=== PATIENT | male | born 1950 | race Caucasian/White ===

== ENCOUNTER → 2016-05-09 | Outpatient (CLI) | payer MEDICARE ==
[2016-05-09 18:18] LABS: CH 33.5; CHCM 35.2; HCT 49.1 % (39.0-53.0); HDW 2.55; HGB 16.5 gm/dL (13.0-17.5); MCHC 33.5 g/dL (31.0-37.0); MCV 95.7 fL (80.0-100.0); Mean Platelet Volume 6.9; RBC 5.13 m/uL (4.30-5.90); RDW 12.2 % (11.5-15.5); WBC 6.9 k/uL (3.8-10.6)
[2016-05-09 18:31] LABS: ALT 48 U/L (21-72); AST 28 U/L (17-59); Alkaline Phosphatase 98 U/L (38-126); Anion Gap 10 mmol/L; Blood Urea Nitrogen 25 mg/dL (9-20); Calcium 10.1 mg/dL (8.4-10.2); Carbon Dioxide 31 mmol/L (22-30); Chloride 102 mmol/L (98-107); Glucose 109 mg/dL (74-99); Non-African American GFR(MDRD) >60 (>60 ml/min/1.73 sqM); Potassium 4.3 mmol/L (3.5-5.1); Sodium 143 mmol/L (137-145); Total Bilirubin 0.8 mg/dL (0.2-1.3); Total Protein 6.8 g/dL (6.3-8.2)
== END | disposition home or self-care (01) ==
LOC: RADXRMAIN 17:56
PROVIDERS: ATTEND Psychiatry & Neurology Neurology
DX: T42.1X Poisoning by, adverse effect of and underdosing of iminostilbenes (principal)
CPT/HCPCS: 80053; 80175; 84439; 84443; 85027

== ENCOUNTER 2016-11-29 16:54 | Inpatient (IN) | payer MEDICARE ==
[2016-11-29] MEDS ORDERED: SODIUM CHLORIDE 0.9% 500 ML IV ONE (17:24)
[2016-11-29] MEDS ORDERED: SODIUM CHLORIDE 0.9% 1,000 ML IV ONE (17:24)
[2016-11-29 17:42] LABS: Appearance,Urine Clear (Clear); Bilirubin,Urine Negative (Negative); Glucose,Urine (UA) Negative (Negative); Ketones,Urine Negative (Negative); Leukocyte Esterase,Urine Negative (Negative); Nitrite,Urine Negative (Negative); PH, Urine 7.5 (5.0-8.0); Protein,Urine Negative (Negative); Specific Gravity,Urine 1.017 (1.001-1.035); UA Billing (MACRO vs. MICRO) CHEM; Urobilinogen,Urine <2.0 mg/dL (<2.0)
[2016-11-29 17:47] LABS: Basophils % (A) 1 %; CH 33.4; CHCM 35.9; Eosinophils # (A) 0.1 k/uL (0-0.7); Eosinophils % (A) 1 %; HCT 43.7 % (39.0-53.0); HDW 2.53; HGB 16.1 gm/dL (13.0-17.5); Luc % (Auto) 2; Lymphocytes # (A) 0.8 k/uL (1.0-4.8); Lymphocytes % (A) 13 %; MCH 34.4 pg (25.0-35.0); MCHC 36.8 g/dL (31.0-37.0); MCV 93.3 fL (80.0-100.0); Mean Platelet Volume 6.2; Monocytes # (A) 0.3 k/uL (0-1.0); Monocytes % (A) 5 %; Neutrophils # (A) 4.7 k/uL (1.3-7.7); Neutrophils % (A) 78 %; RBC 4.68 m/uL (4.30-5.90); RDW 11.9 % (11.5-15.5); WBC (Perox) 6.11
[2016-11-29 17:49] LABS: INR 1.1 (<1.2); Partial Thromboplastin Time 23.3 sec (22.0-30.0); Prothrombin Time 11.5 sec (9.0-12.0)
[2016-11-29 17:52] LABS: ALT 47 U/L (21-72); AST 26 U/L (17-59); Alkaline Phosphatase 100 U/L (38-126); Anion Gap 9 mmol/L; Blood Urea Nitrogen 21 mg/dL (9-20); Calcium 9.4 mg/dL (8.4-10.2); Carbon Dioxide 27 mmol/L (22-30); Chloride 105 mmol/L (98-107); Glucose 100 mg/dL (74-99); Magnesium 2.1 mg/dL (1.6-2.3); Non-African American GFR(MDRD) >60 (>60 ml/min/1.73 sqM); Phosphorous 2.9 mg/dL (2.5-4.5); Sodium 141 mmol/L (137-145); Total Bilirubin 0.5 mg/dL (0.2-1.3); Total Protein 6.1 g/dL (6.3-8.2)
[2016-11-29 18:00] LABS: Creatine Kinase 68 U/L (55-170)
--- NOTE | 2016-11-29 18:05 | CT ---
EXAMINATION TYPE: CT brain wo con DATE OF EXAM: 11/29/2016 COMPARISON: None HISTORY: Altered mental status. CT DLP: 1103.3 mGycm Automated exposure control for dose reduction was used. FINDINGS: Ventricles of normal size. There is no mass effect nor midline shift. There is no sign of intracrania l hemorrhage. The calvarium is intact. There is a mucous small retention cyst in the left maxillary s inus. IMPRESSION: NEGATIVE CT SCAN OF THE BRAIN. NO ADVERSE CHANGE COMPARED TO MR SCAN ON 11/15/2010.
[2016-11-29 18:13] LABS: Creatine Kinase MB 0.7 ng/mL (0.0-2.4); Troponin I <0.012 ng/mL (0.000-0.034)
--- NOTE | 2016-11-29 18:13 | ED ---
General Adult HPI - General Chief complaint: Altered Mental Status Stated complaint: [facility] Mental State Time Seen by Provider: 11/29/16 17:16 Source: patient, family, EMS, RN notes reviewed, old records reviewed Mode of arrival: EMS Limitations: no limitations - History of Present Illness Initial comments: This is a 65-year-old male ER for evaluation. Patient brought in by friend for evaluation of altered mental status. Patient is admitted to occasional call use. But denies significant intoxication. Patient states his mild headache but nothing severe. No chest pain shows of breath or abdominal pain. No nausea vomiting or diarrhea. No change in medications denies any other drugs. He states he's never had a prior history of similar symptoms - Related Data Home Medications Medication Instructions Recorded Confirmed Aspirin 325 mg PO DAILY 11/29/16 11/29/16 Atorvastatin [Lipitor] 80 mg PO DAILY 11/29/16 11/29/16 FLUoxetine HCL [PROzac] 40 mg PO BID 11/29/16 11/29/16 Lysine [l-Lysine] 500 mg PO DAILY 11/29/16 11/29/16 Multivitamins, Thera [Multivitamin 1 tab PO DAILY 11/29/16 11/29/16 (formulary)] lamoTRIgine 200 mg PO BID 11/29/16 11/29/16 Allergies Allergy/AdvReac Type Severity Reaction Status Date / Time No Known Allergies Allergy Verified 11/29/16 18:59 Review of Systems ROS Statement: Those systems with pertinent positive or pertinent negative responses have been documented in the HPI. ROS Other: All systems not noted in ROS Statement are negative. Past Medical History Past Medical History: Hyperlipidemia, Hypertension History of Any Multi-Drug Resistant Organisms: None Reported Past Surgical History: Hernia Repair Past Psychological History: Depression Smoking Status: Never smoker Past Alcohol Use History: Occasional Past Drug Use History: None Reported General Exam Limitations: no limitations General appearance: alert, in no apparent distress Head exam: Present: atraumatic, normocephalic, normal inspection Eye exam: Present: normal appearance, PERRL, EOMI. Absent: scleral icterus, conjunctival injection, periorbital swelling ENT exam: Present: normal exam, mucous membranes moist Neck exam: Present: normal inspection. Absent: tenderness, meningismus, lymphadenopathy Respiratory exam: Present: normal lung sounds bilaterally. Absent: respiratory distress, wheezes, rales, rhonchi, stridor Cardiovascular Exam: Present: regular rate, normal rhythm, normal heart sounds. Absent: systolic murmur, diastolic murmur, rubs, gallop, clicks GI/Abdominal exam: Present: soft, normal bowel sounds. Absent: distended, tenderness, guarding, rebound, rigid Extremities exam: Present: normal inspection, full ROM, normal capillary refill. Absent: tenderness, pedal edema, joint swelling, calf tenderness Back exam: Present: normal inspection Neurological exam: Present: alert, oriented X3, CN II-XII intact Psychiatric exam: Present: normal affect, normal mood Skin exam: Present: warm, dry, intact, normal color. Absent: rash Course Vital Signs 11/29/16 11/29/16 11/29/16 16:59 17:38 18:39 Temperature 99.1 F Pulse Rate 90 68 65 Respiratory 16 20 18 Rate Blood Pressure 151/68 148/67 152/70 O2 Sat by Pulse 96 96 96 Oximetry 11/29/16 11/29/16 19:38 22:00 Temperature 98.8 F Pulse Rate 71 70 Respiratory 18 16 Rate Blood Pressure 141/66 104/55 O2 Sat by Pulse 96 94 L Oximetry - Reevaluation(s) Reevaluation #1: 11/29/16 18:12 Patient remains a poor historian Reevaluation #2: 11/29/16 18:49 Patient is medically clear for psychiatric evaluation, no medical, condition found for mental status EKG Findings - EKG Comments: EKG Findings:: EKG shows normal sinus of 67, WV 146, QRS 100, QTC 464 Medical Decision Making - Medical Decision Making 65 [facility] ER for evaluation, patient's altered mental status will be For psychiatric evaluation and treatment - Lab Data Result diagrams: 12/03/16 20:24 12/03/16 20:24 Lab Results 11/29/16 11/29/16 11/29/16 Range/Units 17:10 17:10 17:10 WBC 6.0 (3.8-10.6) k/uL RBC 4.68 (4.30-5.90) m/uL Hgb 16.1 (13.0-17.5) gm/dL Hct 43.7 (39.0-53.0) % MCV 93.3 (80.0-100.0) fL MCH 34.4 (25.0-35.0) pg MCHC 36.8 (31.0-37.0) g/dL RDW 11.9 (11.5-15.5) % Plt Count 232 (150-450) k/uL Neutrophils % 78 % Lymphocytes % 13 % Monocytes % 5 % Eosinophils % 1 % Basophils % 1 % Neutrophils # 4.7 (1.3-7.7) k/uL Lymphocytes # 0.8 L (1.0-4.8) k/uL Monocytes # 0.3 (0-1.0) k/uL Eosinophils # 0.1 (0-0.7) k/uL Basophils # 0.0 (0-0.2) k/uL PT (9.0-12.0) sec INR (<1.2) APTT (22.0-30.0) sec Sodium (137-145) mmol/L Potassium (3.5-5.1) mmol/L Chloride (98-107) mmol/L Carbon Dioxide (22-30) mmol/L Anion Gap mmol/L BUN (9-20) mg/dL Creatinine (0.66-1.25) mg/dL Est GFR (MDRD) Af Amer (>60 ml/min/1.73 sqM) Est GFR (MDRD) Non-Af (>60 ml/min/1.73 sqM) Glucose (74-99) mg/dL Calcium (8.4-10.2) mg/dL Phosphorus (2.5-4.5) mg/dL Magnesium (1.6-2.3) mg/dL Total Bilirubin (0.2-1.3) mg/dL AST (17-59) U/L ALT (21-72) U/L Alkaline Phosphatase (38-126) U/L Ammonia 19 (<30) umol/L Total Creatine Kinase 68 (55-170) U/L CK-MB (CK-2) 0.7 (0.0-2.4) ng/mL CK-MB (CK-2) Rel Index 1.0 Troponin I <0.012 (0.000-0.034) ng/mL Total Protein (6.3-8.2) g/dL Albumin (3.5-5.0) g/dL TSH (0.465-4.680) mIU/L Urine Color Urine Appearance (Clear) Urine pH (5.0-8.0) Ur Specific [place] (1.001-1.035) Urine Protein (Negative) Urine Glucose (UA) (Negative) Urine Ketones (Negative) Urine Blood (Negative) Urine Nitrite (Negative) Urine Bilirubin (Negative) Urine Urobilinogen (<2.0) mg/dL Ur Leukocyte Esterase (Negative) Urine Opiates Screen (NotDetected) Ur Oxycodone Screen (NotDetected) Urine Methadone Screen (NotDetected) Ur Propoxyphene Screen (NotDetected) Ur Barbiturates Screen (NotDetected) Lamotrigine (2.0-15.0) ug/mL U Tricyclic Antidepress (NotDetected) Ur Phencyclidine Scrn (NotDetected) Ur Amphetamines Screen (NotDetected) U Methamphetamines Scrn (NotDetected) U Benzodiazepines Scrn (NotDetected) Urine Cocaine Screen (NotDetected) U Marijuana (THC) Screen (NotDetected) Serum Alcohol mg/dL 11/29/16 11/29/16 11/29/16 Range/Units 17:10 17:10 17:10 WBC (3.8-10.6) k/uL RBC (4.30-5.90) m/uL Hgb (13.0-17.5) gm/dL Hct (39.0-53.0) % MCV (80.0-100.0) fL MCH (25.0-35.0) pg MCHC (31.0-37.0) g/dL RDW (11.5-15.5) % Plt Count (150-450) k/uL Neutrophils % % Lymphocytes % % Monocytes % % Eosinophils % % Basophils % % Neutrophils # (1.3-7.7) k/uL Lymphocytes # (1.0-4.8) k/uL Monocytes # (0-1.0) k/uL Eosinophils # (0-0.7) k/uL Basophils # (0-0.2) k/uL PT (9.0-12.0) sec INR (<1.2) APTT (22.0-30.0) sec Sodium 141 (137-145) mmol/L Potassium 4.0 (3.5-5.1) mmol/L Chloride 105 (98-107) mmol/L Carbon Dioxide 27 (22-30) mmol/L Anion Gap 9 mmol/L BUN 21 H (9-20) mg/dL Creatinine 0.80 (0.66-1.25) mg/dL Est GFR (MDRD) Af Amer >60 (>60 ml/min/1.73 sqM) Est GFR (MDRD) Non-Af >60 (>60 ml/min/1.73 sqM) Glucose 100 H (74-99) mg/dL Calcium 9.4 (8.4-10.2) mg/dL Phosphorus 2.9 (2.5-4.5) mg/dL Magnesium 2.1 (1.6-2.3) mg/dL Total Bilirubin 0.5 (0.2-1.3) mg/dL AST 26 (17-59) U/L ALT 47 (21-72) U/L Alkaline Phosphatase 100 (38-126) U/L Ammonia (<30) umol/L Total Creatine Kinase (55-170) U/L CK-MB (CK-2) (0.0-2.4) ng/mL CK-MB (CK-2) Rel Index Troponin I (0.000-0.034) ng/mL Total Protein 6.1 L (6.3-8.2) g/dL Albumin 4.1 (3.5-5.0) g/dL TSH (0.465-4.680) mIU/L Urine Color Yellow Urine Appearance Clear (Clear) Urine pH 7.5 (5.0-8.0) Ur Specific [place] 1.017 (1.001-1.035) Urine Protein Negative (Negative) Urine Glucose (UA) Negative (Negative) Urine Ketones Negative (Negative) Urine Blood Negative (Negative) Urine Nitrite Negative (Negative) Urine Bilirubin Negative (Negative) Urine Urobilinogen <2.0 (<2.0) mg/dL Ur Leukocyte Esterase Negative (Negative) Urine Opiates Screen Not Detected (NotDetected) Ur Oxycodone Screen Not Detected (NotDetected) Urine Methadone Screen Not Detected (NotDetected) Ur Propoxyphene Screen Not Detected (NotDetected) Ur Barbiturates Screen Not Detected (NotDetected) Lamotrigine 8.6 (2.0-15.0) ug/mL U Tricyclic Antidepress Not Detected (NotDetected) Ur Phencyclidine Scrn Not Detected (NotDetected) Ur Amphetamines Screen Not Detected (NotDetected) U Methamphetamines Scrn Not Detected (NotDetected) U Benzodiazepines Scrn Not Detected (NotDetected) Urine Cocaine Screen Not Detected (NotDetected) U Marijuana (THC) Screen Not Detected (NotDetected) Serum Alcohol mg/dL 11/29/16 11/29/16 11/29/16 Range/Units 17:10 17:10 17:10 WBC (3.8-10.6) k/uL RBC (4.30-5.90) m/uL Hgb (13.0-17.5) gm/dL Hct (39.0-53.0) % MCV (80.0-100.0) fL MCH (25.0-35.0) pg MCHC (31.0-37.0) g/dL RDW (11.5-15.5) % Plt Count (150-450) k/uL Neutrophils % % Lymphocytes % % Monocytes % % Eosinophils % % Basophils % % Neutrophils # (1.3-7.7) k/uL Lymphocytes # (1.0-4.8) k/uL Monocytes # (0-1.0) k/uL Eosinophils # (0-0.7) k/uL Basophils # (0-0.2) k/uL PT 11.5 (9.0-12.0) sec INR 1.1 (<1.2) APTT 23.3 (22.0-30.0) sec Sodium (137-145) mmol/L Potassium (3.5-5.1) mmol/L Chloride (98-107) mmol/L Carbon Dioxide (22-30) mmol/L Anion Gap mmol/L BUN (9-20) mg/dL Creatinine (0.66-1.25) mg/dL Est GFR (MDRD) Af Amer (>60 ml/min/1.73 sqM) Est GFR (MDRD) Non-Af (>60 ml/min/1.73 sqM) Glucose (74-99) mg/dL Calcium (8.4-10.2) mg/dL Phosphorus (2.5-4.5) mg/dL Magnesium (1.6-2.3) mg/dL Total Bilirubin (0.2-1.3) mg/dL AST (17-59) U/L ALT (21-72) U/L Alkaline Phosphatase (38-126) U/L Ammonia (<30) umol/L Total Creatine Kinase (55-170) U/L CK-MB (CK-2) (0.0-2.4) ng/mL CK-MB (CK-2) Rel Index Troponin I (0.000-0.034) ng/mL Total Protein (6.3-8.2) g/dL Albumin (3.5-5.0) g/dL TSH 1.400 (0.465-4.680) mIU/L Urine Color Urine Appearance (Clear) Urine pH (5.0-8.0) Ur Specific [place] (1.001-1.035) Urine Protein (Negative) Urine Glucose (UA) (Negative) Urine Ketones (Negative) Urine Blood (Negative) Urine Nitrite (Negative) Urine Bilirubin (Negative) Urine Urobilinogen (<2.0) mg/dL Ur Leukocyte Esterase (Negative) Urine Opiates Screen (NotDetected) Ur Oxycodone Screen (NotDetected) Urine Methadone Screen (NotDetected) Ur Propoxyphene Screen (NotDetected) Ur Barbiturates Screen (NotDetected) Lamotrigine (2.0-15.0) ug/mL U Tricyclic Antidepress (NotDetected) Ur Phencyclidine Scrn (NotDetected) Ur Amphetamines Screen (NotDetected) U Methamphetamines Scrn (NotDetected) U Benzodiazepines Scrn (NotDetected) Urine Cocaine Screen (NotDetected) U Marijuana (THC) Screen (NotDetected) Serum Alcohol <10 mg/dL - Radiology Data Radiology results: report reviewed (CT brain negative for acute disease), image reviewed Disposition Clinical Impression: Altered mental state, Rapidly progressive dementia Disposition: TRANSFER TO PSYCH HOSP/UNIT Condition: Fair
--- NOTE | 2016-11-29 18:16 | XR ---
EXAMINATION TYPE: XR chest 2V DATE OF EXAM: 11/29/2016 COMPARISON: NONE HISTORY: Altered mental status. Hypertension. TECHNIQUE: Frontal and lateral views of the chest are obtained. FINDINGS: There is no heart failure nor confluent pneumonic infiltrate. Heart size is normal. There is a calcified granuloma in the left midlung. There are chest leads. There is no pleural effusion. IMPRESSION: No active cardiopulmonary disease. Atheromatous aorta.
[2016-11-29] MEDS ORDERED: ZIPRASIDONE 20 MG CAP PO STA (21:27)
[2016-11-29] MEDS ORDERED: LORazepam 1 MG TAB PO STA (21:28)
[2016-11-29] MEDS ORDERED: LORazepam 2 MG/ML SYRINGE IV STA (21:35)
[2016-11-29] MEDS ORDERED: ZIPRASIDONE 20 MG VIAL IM STA (21:35)
[2016-11-29] MEDS ORDERED: MAG HYDROX/AL HYDROX/SIMETH 30 ML CUP PO PRN (22:43)
[2016-11-29] MEDS ORDERED: MAGNESIUM HYDROXIDE 2,400 MG/10 ML CUP PO PRN (22:43)
[2016-11-30] MEDS: ATORVASTATIN 80 MG TAB PO SCH (09:55)
[2016-11-30] MEDS: FLUoxetine HCL 20 MG CAP PO SCH (09:55)
[2016-11-30] MEDS: ASPIRIN 325 MG TAB PO SCH (09:55)
[2016-11-30] MEDS: NICOTINE 14MG/24HR PATCH TRANSDERM SCH (09:56)
[2016-11-30] MEDS: lamoTRIgine 100 MG TAB PO SCH ×2 (09:56→21:54)
[2016-11-30] MEDS: MULTIVITAMINS, THERA 1 EACH TAB PO SCH (13:15)
[2016-11-30] MEDS: ZIPRASIDONE 20 MG VIAL IM PRN (14:15)
[2016-11-30] MEDS: LORazepam 2 MG/ML SYRINGE IM PRN (14:16)
[2016-11-30] MEDS: risperiDONE ODT 1 MG TAB PO SCH (21:54)
[2016-12-01] MEDS: LORazepam 1 MG TAB PO PRN (06:01)
[2016-12-01 06:15] LABS: Glucose,Whole Blood 89 mg/dL (75-99)
[2016-12-01] MEDS ORDERED: SODIUM CHLORIDE 0.9% 500 ML IV ONE (06:25)
--- NOTE | 2016-12-01 08:48 | P.MDCNMH ---
History of Present Illness H&P Date: 12/01/16 Chief Complaint: Agitation, altered mental status Patient is a 65-year-old male with history of depression and hypercholesterolemia brought in to the emergency room by his family due to altered mental status, patient was found to be severely depressed and agitated so he was admitted to psych unit patient received multiple psychotropic medication including Geodon and Ativan for severe agitation, he subsequently developed low blood pressure and became extremely weak and lethargic with order normal saline bolus and his blood pressure improved after the bolus and it went from 70s-80s systolically mid 120s systolically upon my examination he was arousablehe is in the hospital and that it is 2017 however he states he just wants to go home. Review of Systems un-reliable due to altered mental status ROS unobtainable: due to mental status Past Medical History Past Medical History: Hyperlipidemia, Hypertension History of Any Multi-Drug Resistant Organisms: None Reported Past Surgical History: Hernia Repair Past Psychological History: Depression Smoking Status: Never smoker Past Alcohol Use History: Occasional Past Drug Use History: None Reported Medications and Allergies Home Medications Medication Instructions Recorded Confirmed Type Aspirin 325 mg PO DAILY 11/29/16 11/29/16 History Atorvastatin [Lipitor] 80 mg PO DAILY 11/29/16 11/29/16 History FLUoxetine HCL [PROzac] 40 mg PO BID 11/29/16 11/29/16 History Lysine [l-Lysine] 500 mg PO DAILY 11/29/16 11/29/16 History Multivitamins, Thera [Multivitamin 1 tab PO DAILY 11/29/16 11/29/16 History (formulary)] lamoTRIgine 200 mg PO BID 11/29/16 11/29/16 History Allergies Allergy/AdvReac Type Severity Reaction Status Date / Time No Known Allergies Allergy Verified 11/29/16 18:59 Physical Exam Vitals: Vital Signs Pulse Pulse Pulse Resp BP BP BP 12/01/16 08:18 82 16 102/61 12/01/16 07:12 71 121/64 12/01/16 06:20 68 79/52 11/30/16 09:56 74 16 123/68 Pulse Ox 12/01/16 08:18 12/01/16 07:12 12/01/16 06:20 11/30/16 09:56 95 - Constitutional General appearance: no acute distress - EENT Eyes: PERRLA, normal appearance Ears: bilateral: normal - Neck Neck: no lymphadenopathy, normal ROM, no rigidity, no stridor, no thyromegaly Carotids: bilateral: upstroke normal Thyroid: bilateral: normal size - Respiratory Respiratory: bilateral: CTA, negative: rales, rhonchi, wheezing - Cardiovascular Rhythm: regular Heart sounds: normal: S1, S2 Abnormal Heart Sounds: no systolic murmur, no diastolic murmur, no S3 Gallop, no S4 Gallop Cranial Nerve Examination - Cranial Nerves Cranial Nerve II- Optic: Intact Cranial Nerve III- Oculomotor: Intact Cranial Nerve IV- Trochlear: Intact Cranial Nerve V- Trigeminal: Intact Cranial Nerve - Abducens: Intact Cranial Nerve VII- Facial: Intact Cranial Nerve VIII- Auditory: Intact Cranial Nerve IX- Glossopharyngeal: Intact Cranial Nerve X- Vagus: Intact Cranial Nerve XI- Accessory: Intact Cranial Nerve XII- Hypoglossal: Intact Results Results: EKG reviewed and was was with no acute changes CBC & Chem 7: 11/29/16 17:10 11/29/16 17:10 Assessment and Plan (1) Hypotension due to medication Narrative/Plan: Likely related iatrogenic causes specifically medication induced, after administration of normal bolus his blood pressure improved, we will obtain basic labs including CBC and cardiac markers to rule out any other causes of hypertension such as anemia or coronary artery disease. I Instructed nursing staff to monitor his blood pressure every hourly notify us for any drop in his blood pressure, instituted fall precautions Status: Acute (2) Altered mental state Narrative/Plan: Altered mentation is a combination of initially acute psychosis with subsequent lethargy after multiple psychotropic medication. Status: Acute (3) Depressed Narrative/Plan: Treatment as per psychiatricy Status: Acute (4) Benign essential hypertension Narrative/Plan: No reports of any medication for blood pressure at home upon admission he became hypotensive as mentioned above currently normotensive continue to monitor Status: Acute (5) Hyperlipidemia Narrative/Plan: Continue statins Status: Resolved Time with Patient: Greater than 30
[2016-12-01] MEDS ORDERED: LORazepam 0.5 MG TAB PO STA (08:50)
[2016-12-01] MEDS: FLUoxetine HCL 20 MG CAP PO SCH (08:55)
[2016-12-01] MEDS: risperiDONE ODT 1 MG TAB PO SCH ×2 (08:55→20:48)
[2016-12-01] MEDS: lamoTRIgine 100 MG TAB PO SCH ×2 (08:55→20:48)
[2016-12-01] MEDS: ATORVASTATIN 80 MG TAB PO SCH (08:55)
[2016-12-01] MEDS: NICOTINE 14MG/24HR PATCH TRANSDERM SCH (09:16)
[2016-12-01 09:34] LABS: Basophils % (A) 0 %; CH 33.3; CHCM 34.7; Eosinophils # (A) 0.1 k/uL (0-0.7); Eosinophils % (A) 1 %; HCT 46.3 % (39.0-53.0); HDW 2.53; HGB 16.1 gm/dL (13.0-17.5); Luc # (Auto) 0.08; Luc % (Auto) 1; Lymphocytes # (A) 0.8 k/uL (1.0-4.8); Lymphocytes % (A) 11 %; MCH 33.5 pg (25.0-35.0); MCHC 34.8 g/dL (31.0-37.0); MCV 96.4 fL (80.0-100.0); Mean Platelet Volume 6.3; Monocytes # (A) 0.4 k/uL (0-1.0); Monocytes % (A) 5 %; Neutrophils # (A) 6.2 k/uL (1.3-7.7); Neutrophils % (A) 82 %; WBC 7.5 k/uL (3.8-10.6); WBC (Perox) 7.43
[2016-12-01 09:53] LABS: ALT 48 U/L (21-72); AST 32 U/L (17-59); Alkaline Phosphatase 112 U/L (38-126); Anion Gap 16 mmol/L; Blood Urea Nitrogen 26 mg/dL (9-20); Calcium 9.5 mg/dL (8.4-10.2); Carbon Dioxide 20 mmol/L (22-30); Chloride 105 mmol/L (98-107); Glucose 80 mg/dL (74-99); Non-African American GFR(MDRD) >60 (>60 ml/min/1.73 sqM); Potassium 4.5 mmol/L (3.5-5.1); Sodium 141 mmol/L (137-145); Total Protein 6.5 g/dL (6.3-8.2)
--- NOTE | 2016-12-01 10:09 | HP ---
DATE OF SERVICE: 11/30/2016 IDENTIFYING DATA: This patient is a 65-year-old , male who was admitted to the Mental Health Unit through the emergency room on a petition and clinical certificate. HISTORY OF PRESENT ILLNESS: The patient presents with a petition stating speaking to nonexisting persons, saw a tree moving, becomes combatant. Making no sense. Not eating, drinking, showering, seeing things. Angry then calm. Resisted help from [facility] and EMS. Talking to nonexisting people. Violent actions. The petition was completed by the patients brother, Coy Astorga. The patient was found this morning in the back hallway. He was seated on a bench. Reluctantly he agreed to follow me to the library. I was able to ask approximately 5 or 6 demographic type questions. The patient became agitated. He became very loud and began yelling. Due to his agitation the interview had to be discontinued. This was my second attempt today trying to speak with this patient. The patient has been agitated and confused for the duration of the morning. He has required the use of staff escorting him to his room and providing direction. I was able to reach the petitioner, the patients brother Mr. Coy Astorga. He states that for the last 6 months the patient has been demonstrating more untrusting behavior. He has been getting loud and using profanity. His brother suspects that the patient wants to be a hermit and gets loud in order to push people away. He states that the patient does have history of epilepsy ever since he left college and recently there was a titration of the Lamictal. He is unaware if that could be etiology. He describes the patient as always being untrusting, but seems to be worse lately. I did try speaking with the patients . She was not available. PAST PSYCHIATRIC HISTORY: There is no known history of inpatient psychiatric admissions or suicide attempts. It appears that he is prescribed Prozac 40 mg twice daily, Lamictal 200 mg twice daily for seizures. PAST MEDICAL HISTORY: Hyperlipidemia. He is prescribed Lipitor. Seizure disorder. He is prescribed Lamictal. Lamictal level was ordered. The result is not yet available. ALLERGIES: No known drug allergies. CHEMICAL DEPENDENCY HISTORY: Unknown. FAMILY PSYCHIATRIC HISTORY: Unknown. FAMILY CHEMICAL DEPENDENCY HISTORY: Unknown. SOCIAL HISTORY: The patient is 65-years old. He states that he is since 1974. He reports having two adult children. He reports that he lives with his . 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 He provided no further information. MENTAL STATUS EXAM: The patient is a disheveled appearing male. He has long hair and an overgrown kennedy. He is dressed in hospital attire. He makes no eye contact. As noted, he is easily agitated. He becomes very loud and yells and frequently uses profanity. He indicates that we have stolen his eye glasses and that we are withholding them. He appears to have paranoid and persecutory thoughts. At various times throughout the morning he has demonstrated inability to walk on his own, but other times he indicates that he has difficulty and staff are required to assist him back to his room. No cognitive testing could be performed. Insight and judgment appear to be poor. STRENGTHS: Supportive family. WEAKNESSES: Ongoing symptoms of psychosis impeding psychosocial function. INTELLECT: Presumed to be below average to average. IMPRESSIONS: 1. Psychosis unspecified. 2. Psychosocial function impacted by current symptoms of psychosis. 3. History of seizure disorder and hyperlipidemia. PLAN: The patient has been admitted to the Mental Health Unit involuntarily. I did complete a second clinical certificate. He requires further evaluation and treatment. I will initiate Risperdal M-tab 1 mg twice daily. He has received Geodon IM while on the mental health unit for agitated behavior. Social work will attempt to complete a psychosocial assessment on the patient when appropriate. Internal Medicine will attempt to meet with the patient for routine history and physical exam. Vital signs reviewed. They are within normal limits. Labs reviewed. His urine drug screen was negative. Serum alcohol was negative. We will monitor him for safety. We will continue to try to get further collateral information from family members as allowed. ABDIRAHMAN
[2016-12-01] MEDS: ASPIRIN 325 MG TAB PO SCH (10:13)
--- NOTE | 2016-12-01 12:25 | P.PN ---
Progress Note - Text Interval history: The patient is found in his room. He is lying in bed sleeping. He is verbally arousable but remains quite tired. He continues to receive when necessary medication for agitation. He was evaluated by internal medicine their input is appreciated. Nursing reports that the patient has been compliant with the Risperdal M tab. The patient verbalizes that he wants to go home and continues to lack insight into the reason for this admission. Staff report that the patient will continue to become loud and agitated. We are trying to minimize use of when necessary medication when possible. The patient did require a IV bolus of fluids due to hypotension last evening. Mental status exam: The patient is found sleeping in bed he was verbally arousable but does fall back to sleep. He did provide some brief answers to questions asked and was not agitated during the time I spoke with him because of his sedation. Insight and judgment limited. Presumed symptoms of psychosis continue. He demonstrates no verbal or physical aggressiveness during our brief interaction this morning. Plan: We will continue with the medications as written we will try to minimize the doses to minimize sedation. He has required several when necessary medications due to agitation however in the form of yelling and behavioral issues. Vital signs reviewed. Staff continue to assist him in getting to the dining room for meals.
[2016-12-01] MEDS: MULTIVITAMINS, THERA 1 EACH TAB PO SCH (12:30)
[2016-12-02] MEDS: risperiDONE ODT 1 MG TAB PO SCH (09:31)
[2016-12-02] MEDS: ASPIRIN 325 MG TAB PO SCH (09:31)
[2016-12-02] MEDS: lamoTRIgine 100 MG TAB PO SCH ×2 (09:31→21:51)
[2016-12-02] MEDS: NICOTINE 14MG/24HR PATCH TRANSDERM SCH (09:31)
[2016-12-02] MEDS: FLUoxetine HCL 20 MG CAP PO SCH (09:31)
[2016-12-02] MEDS: ATORVASTATIN 80 MG TAB PO SCH (09:31)
--- NOTE | 2016-12-02 11:54 | P.PN ---
Progress Note - Text Interval History: Patient is a 65-year-old male admitted on an involuntary basis after he was found at home talking to himself, seeing things and becoming agitated. Patient was taking Prozac 40 mg on an outpatient basis, patient is also on Lamictal 200 mg twice a day for seizure disorder etiology unknown. Patient was begun on Risperdal M tabs 1 mg twice a day. Patient was seen in his room where he was sitting at the side of his bed, patient did respond to his name but did not respond to any questions, he was mumbling and stating that he wanted to leave. Patient kept his eyes closed during the whole interaction. When asked if he was eating he stated he was not hungry. Patient did not respond to any further interactions. Mental Status: Appearance/Attitude: Patient is disheveled looking, appropriately dressed and sitting on the edge of his bed with his eyes shut Behavior: Patient has exhibited agitation on the unit and has received medication for such, currently he appears psychomotor retarded. Speech/Language: Patient was not spontaneous, he was mumbling and difficult to understand Thought Process: Patient is not goal-directed, he that he wasn't hungry and he wanted to go home. Patient would not respond to any other questions and did not spontaneously make any other comments. Thought Content: patient did not appear to be responding to internal stimuli and further assessment of his thought content was not available as the patient would not respond to questions. Suicidal/Homicidal Ideation: Unable to assess this patient is not responding to questions. Sensorium/Cognition: Patient was alert when I was speaking with him however he was seen sleeping for most of the time this morning, he was oriented to person but did not respond to any other questions and his attention and concentration are poor. Mood/Affect: patient's mood is irritable and his affect is flat. Insight/Judgement: Patient's insight and judgment are impaired. Assessment: patient required Geodon and Ativan on Friday in the afternoon and required Ativan yesterday in the morning. He has been taking his Risperdal M tab. Patient's computed tomography scan was negative on admission and his Lamictal level was within therapeutic range. 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 Patient's UDS was negative on admission. Patient has a history of a seizure disorder the etiology of which is unknown. Per staff patient was up ambulating this morning and singing, he required IV hydration due to a low blood pressure but his vital signs are currently stable. Patient's laboratory studies do not reveal any clinically significant abnormalities, patient was dehydrated on admission. Plan: I will discontinue the patient's Prozac as it is unclear to me why he was taking the medication and his confused presentation. Patient will continue on the Risperdal M tabs 1 mg twice a day and Lamictal 200 mg twice a day. We'll attempt to obtain further historical information from the patient's with whom he lives. Continue to evaluate the patient and he continues to require hospitalization due to his confused, agitated presentation.
[2016-12-02] MEDS: MULTIVITAMINS, THERA 1 EACH TAB PO SCH (13:34)
[2016-12-02] MEDS: LORazepam 1 MG TAB PO PRN ×2 (13:42→21:52)
[2016-12-02] MEDS ORDERED: THIAMINE 100 MG TAB PO STA (18:47)
[2016-12-03] MEDS: NICOTINE 14MG/24HR PATCH TRANSDERM SCH (08:30)
[2016-12-03] MEDS: ATORVASTATIN 80 MG TAB PO SCH (09:45)
[2016-12-03] MEDS: lamoTRIgine 100 MG TAB PO SCH ×3 (09:46→22:21)
[2016-12-03] MEDS: ASPIRIN 325 MG TAB PO SCH (09:46)
[2016-12-03] MEDS: LORazepam 1 MG TAB PO PRN (09:49)
--- NOTE | 2016-12-03 10:40 | XR ---
Right hip HISTORY: Right hip pain, trauma 2 views of the right hip No comparisons Surgical clips are noted in the right pelvis. Bone mineralization is mildly reduced. Alignment is ada ntained. Some minimal marginal spurring is suspected. Joint space maintained. There is a questionable lucency seen at the level of the medial aspect of the acetabulum as measured on the oblique view. Fr ontal view shows poor definition possibly due to technique or low bone mineral. IMPRESSION: Difficult to exclude fracture as described. No evident dislocation. Consider CT scan or M RI for better evaluation.
[2016-12-03] MEDS: THIAMINE 100 MG TAB PO SCH (13:01)
[2016-12-03] MEDS: MULTIVITAMINS, THERA 1 EACH TAB PO SCH (13:01)
--- NOTE | 2016-12-03 13:15 | P.PN ---
Progress Note - Text Interval History: Patient is a 65-year-old male who was seen again today. Patient was in his room and had just fallen and hip x-ray was ordered which revealed no fractures. Patient again was keeping his eyes shut and could not tell me why. Patient responded to his name and continue to have difficulty responding to questions were providing history. Patient did verbalize when asked if he drank alcohol at home but he was unable to state how much or how frequently. Patient remains confused and needing redirection, he needed assistance in eating last evening. Mental Status: Appearance/Attitude: Patient is in a hospital gown and is disheveled, patient keeps his eyes closed. Behavior: Patient is not demonstrating any psychomotor agitation or retardation. Speech/Language: Patient is not spontaneous, only responding occasionally to questions in brief sentences and at times is not relevant. Thought Process: Patient is unable to respond to most questions Thought Content: Patient does not appear to be responding to internal stimuli, patient is unable to verbalize any complaints. Suicidal/Homicidal Ideation: Unable to assess, patient has made no threatening statements and has exhibited no self harm behavior. Sensorium/Cognition: Patient is more alert today, is oriented to his name and situation he is unable to state the city and thought it was 2011. Mood/Affect: Patient's mood remains flat and his affect is as well. Insight/Judgement: Patient's insight and judgment are impaired Assessment: Patient continues to have symptoms of a delirium although today he is more alert but remains disoriented, confused and has difficulty performing most ADLs. Patient's provided information that he had a seizure disorder after suffering a stroke while he was in the [employer] in 1968. She did not provide any history regarding his use of alcohol/drugs. Patient did verbalize to staff last evening that he wanted wine with his dinner and also verbalized that he did use alcohol at home, today he also stated that he did drink but is unable to tell us how much or how often. Patient felt today while getting back into the wheelchair which was not locked and a hip x-ray was ordered. The x- ray revealed no fracture but the patient does have surgical clips in his pelvis. Per report from social work during the team treatment meeting his was not forthcoming with any further information. Patient has required 2 doses of Ativan as needed and has not been aggressive or assaultive on the unit. Plan: I have discontinued his Risperdal and Prozac and have continued him on Ativan when necessary and Geodon when necessary for severe agitation. Patient remains confused and disoriented, needing assistance with most ADLs. At times he appears clear and has been ambulating without difficulty in the halls and at other times appears unsteady on his feet and has been using a wheelchair. Patient was also started on thiamine yesterday and a B12 and folate level were ordered this morning. Patient's computed tomography scan on admission was negative for any acute injury. Will continue to observe the patient and evaluate the need for further studies as his condition dictates. Patient continues to require hospitalization due to his confusion.
[2016-12-03 13:18] LABS: Vitamin B12 889 pg/mL (239-931)
--- NOTE | 2016-12-03 19:57 | XR ---
EXAMINATION TYPE: XR orbit pre-MRI foreign body DATE OF EXAM: 12/03/2016 COMPARISON: NONE HISTORY: Foreign body TECHNIQUE: 3 views FINDINGS: Orbital margins are intact. There is no sign of radiopaque foreign body. Paranasal sinuses appear normal. IMPRESSION: No evidence of foreign body.
[2016-12-03] MEDS ORDERED: SODIUM CHLORIDE 0.9% 500 ML IV ONE (19:58)
--- NOTE | 2016-12-03 20:28 | CT ---
EXAMINATION TYPE: CT brain wo con DATE OF EXAM: 12/03/2016 COMPARISON: 11/29/2016 HISTORY: Fall. Confusion. CT DLP: 1168 mGycm Automated exposure control for dose reduction was used. FINDINGS: Ventricles and sulci appear normal for age. There is no mass effect nor midline shift. There is no si gn of intracranial hemorrhage. The calvarium appears intact. There is small mucus retention cyst in t he left maxillary sinus. IMPRESSION: NEGATIVE CT SCAN OF THE BRAIN. NO CHANGE.
[2016-12-03 20:35] LABS: CH 34.1; CHCM 35.3; HCT 47.2 % (39.0-53.0); HDW 2.49; MCH 32.8 pg (25.0-35.0); MCHC 33.9 g/dL (31.0-37.0); MCV 96.9 fL (80.0-100.0); RBC 4.87 m/uL (4.30-5.90); RDW 12.6 % (11.5-15.5)
--- NOTE | 2016-12-03 20:48 | P.PN ---
Progress Note - Text 65 years old gentleman with progressing him and she over the last 6 months who has been falling frequently, fell 2 times today, and per patient he had a head trauma and loss of consciousness. However of note he is only oriented 1-2. He denied dysuria, coughing, abdominal pain, nausea or vomiting. I spoke to the psychiatric primary team, who reported that the patient has been having worsening altered mental status over the last 6 months as per the family, and he has been having visual hallucinations issues. They reported that he does have a history of heat stroke and seizure disorder. The patient actually does have visual hallucinations today as well. It was also reported that he is a daily drinker, drinks 2 glasses of wine nightly and the last drink was prior to admission, almost 4 days ago. Patient was recently started on Geodon on Friday and was held yesterday as it was causing the patient significant lethargy, and according to the psychiatrist the patient is more awake today. We, the hospitalist team, were called to reevaluate the patient today after we saw him as a consult upon admission, after he had a fall today that was unwitnessed. Upon my interview with the patient is awake and alert but he is only oriented 1-2 and he does have obvious visual hallucinations. His orthostatics were positive upon check by RN. He was also hypertensive in the 180s that done down to 150s. He is not on any blood pressure medications. He is on full dose aspirin. Physical exam: Vital signs positive orthostasis, systolic blood pressure in the 180s, heart rate in the low 90s, the patient is on room air No apparent distress, alert and oriented 1-2 CT AB with no crackles or wheezing Patient does have positive Romberg sign, no focal motor or sensory deficit Bruising over the right hip Impaired cognition and judgment Regular heart rate with no audible murmurs and no heaves No labs from today Assessment and plan: #Altered mental status and frequent falls, most likely due to his progressing dementia, it was reported that he did have shuffling gait by prior neurology assessment so it can be lowe body dementia, most likely due to sepsis, less likely due to medication changes as none occurred to be of concern, could be a stroke although the patient had a negative CT head on admission, could be related to alcohol withdrawal although this is less likely, or it could be just due to dehydration or orthostasis. -We will give 1 L bolus -We ordered CBC and basic metabolic panel as well as UA -CIWA protocol assessment -We will order stat CT head to evaluate for any intracranial bleeding versus stroke as the patient is on full dose aspirin. We will also order MRI/MRA head and neck to obtain a possible diagnosis for his worsening altered mental status. -Neurology consult -If concerns for multiple trauma, we do recommend consulting trauma surgery for thorough evaluation #Positional Orthostasis with essential hypertension -We will start lisinopril 5 mg -Bolus as above #Imbalance -Related to above -Fall precautions -Physical therapy consult -1:1 monitoring #Right hip pain, h/o hip surgery -Negative R hip xray 12/03 #Poor by mouth intake -1:1 feeding is recommended -Nutritional evaluation is recommended #Goals of care -We'll recommend re-discussion of goals of care with the family as the patient overall prognosis is poor More than 40 minutes was spent on this patient medical assessment.
[2016-12-03 21:00] LABS: Anion Gap 13 mmol/L; Blood Urea Nitrogen 25 mg/dL (9-20); Carbon Dioxide 26 mmol/L (22-30); Chloride 103 mmol/L (98-107); Glucose 109 mg/dL (74-99); Non-African American GFR(MDRD) >60 (>60 ml/min/1.73 sqM); Potassium 4.1 mmol/L (3.5-5.1); Sodium 142 mmol/L (137-145)
[2016-12-03] MEDS: ZIPRASIDONE 20 MG VIAL IM PRN (22:00)
[2016-12-03] MEDS ORDERED: WATER FOR INJECTION, STERILE 10 ML IV ONE (22:08)
[2016-12-03] MEDS: LISINOPRIL 5 MG TAB PO SCH ×2 (22:10→22:20)
[2016-12-04 08:17] LABS: Glucose,Whole Blood 111 mg/dL (75-99)
[2016-12-04] MEDS: ASPIRIN 325 MG TAB PO SCH (09:42)
[2016-12-04] MEDS: LISINOPRIL 5 MG TAB PO SCH (09:44)
[2016-12-04] MEDS: ATORVASTATIN 80 MG TAB PO SCH (09:44)
[2016-12-04] MEDS: LORazepam 1 MG TAB PO PRN (09:46)
[2016-12-04] MEDS: lamoTRIgine 100 MG TAB PO SCH ×2 (09:46→22:43)
[2016-12-04] MEDS: NICOTINE 14MG/24HR PATCH TRANSDERM SCH (10:01)
[2016-12-04 12:29] LABS: Treponemal Ab Non-Reactive (Non-Reactive)
[2016-12-04] MEDS: MULTIVITAMINS, THERA 1 EACH TAB PO SCH ×2 (13:24→13:50)
[2016-12-04] MEDS: THIAMINE 100 MG TAB PO SCH ×2 (13:24→13:51)
--- NOTE | 2016-12-04 14:26 | P.PN ---
Subjective Principal diagnosis: Patient is seen and examined today, in follow up for behavioral changes, memory loss, and recurrent falls. history obtained by reviewing the chart, discussing the case with patient's over the phone, and discussion with Dr. Sarabia. 65 year old male with no significant past medical history except for depressed mood and feeling under pressure. Patient recognizes that her husbands problems possibly started a year ago, when he started to have trouble with walking as he stumbles over things and bumps his toes with furniture. He has never been diagnosed with stroke, and never had any focal neurologic deficits. but patient's does report that the patient is not as strong as he used to be. She reports long history of acting out dreams but no report of falling off the bed, and in part, this could be due to patient;s preference to sleep on the floor due to his chronic back pain. Patient is not aware of a diagnosis of lumbar stenosis which could explain LE weakness and falls. Patient;s did report long history of alcohol on regular basis, but she does not think that her was abusing alcohol up until couple weeks ago when she noticed a significant sudden increase in the amount of alcohol ingestion that lead to multiple family members criticizing the patient's alcohol habits. She adds, that he cut back on alcohol over the few days prior to presentation where he was brought to the hospital due to what appears to the family as a nervous breakdown. She did recognize a recent change in patients hand writing that he himself can not read what he writes any more. patient is not aware of any tremors in patient's hands, but definitely recognizes changes in his personality. She reports that all this has been happening pretty fast with quick deterioration in patients memory and behaviors over the past 1 year. His doctors has started him on prozac for depression during this period. Patient's did also report history of dementia in patient's mother and older brother, without knowing the exact type. Today I saw the patient in his room while he was eating, he was properly groomed and very calm and cooperative, however; he was confabulating and most of the time he did not make any sense when responded to my questions, he was pointing at condiments and thought its "fish" and became tangential in his thoughts and kept talking about ice fishing until he was redirected by me, then he could not name the hard boiled eggs he was eating and thought it was a sugary treat. Then he struggled but eventually recognized the arriaga he was eating, but had no idea what was he eating when i pointed to the bread. He reports that he feels fine and wants to leave, but when was asked to stand up and walk, he refused saying "I dont feel safe standing up as I would fall". Objective - Vital Signs Vital signs: Vital Signs Temp 97.8 F 12/03/16 09:20 Pulse 88 12/04/16 09:40 Resp 18 12/04/16 09:40 BP 111/66 12/04/16 09:40 Pulse Ox 96 12/03/16 18:45 Constitutional: vital signs stable, Not in acute distress, pleasant, conversant, but confabulating and most of the time he was tangential in his thoughts and his responses dont make sense. Eyes: Pupils equal round reactive to light, no evidence of nystagmus, EOMI ENMT: Normocephalic, atraumatic, oropharynx clear, no erythema/exudate Neck: Supple, no carotid bruit Lungs: Clear to auscultation bilaterally, normal respiratory effort no use of accessory muscles Cardiovascular: Regular rate and rhythm, no murmurs, no gallops, no rubs, no peripheral edema Gastrointestinal: Soft, no tenderness to palpation, no palpable hepatosplenomegally, bowel sounds positive Skin: Unremarkable temperature, tone, texture, and turgor, no induration or subcutaneous nodule, no rashes, no lesions, no ulcers Extremities: No digital cyanosis, ischemia, or clubbing, peripheral pulses palpable and equal over bilateral radial arteries and dorsalis pedis arteries, no calf muscle tenderness Psych: Alert, oriented to self only, well groomed, and calm , poor judgment Neuro: Cranial nerves II-XII grossly intact, no focal sensory deficits to touch , strength 4/5 throughout. plantar reflex is equivocal bilaterally , tone is within normal limits (no appreciated led pipe, or cogwheel rigidity) , gait was not tested as patient was afraid to stand up. - Labs CBC & Chem 7: 12/03/16 20:24 12/03/16 20:24 Labs: Abnormal Lab Results - Last 24 Hours (Table) 12/03/16 12/04/16 Range/Units 20:24 08:05 BUN 25 H (9-20) mg/dL Glucose 109 H (74-99) mg/dL POC Glucose (mg/dL) 111 H (75-99) mg/dL Assessment and Plan (1) Rapidly progressive dementia Narrative/Plan: This could be of wide differential diagnosis, including, but not limited to: a - Vascualar (recurrent mini brain ischemia) , CT scan of the head did not show any acute insult at this time b- Alcohol abuse, however, patient's denied any history of alcohol abuse, she reported patient would drink a glass of wine on most of the evenings, however not until couple weeks ago, when he increased his alcohol ingestion remarkably and lead to criticism by his family. and when he started to cut back led to nervous breakdown for which he was brought to the hospital c- Parkinsons dementia, neurologic exam did not suggest findings supportive of parkinson's, however, family did report shuffling gate and overall slowing in the patient along with change in hand writing that became illegible, these symptoms along with behavioral changes could be secondary to this process. d- Alpha synucleinopathy neurodegenrative disease, does progress into parkinson' s, dementia with lewy body disease, and multiple system atrophy (MSA), in almost 80% of the patients within 5 years of onset of symptoms , and patient's did report history of dreams enactments which could be suggestive of REM behaviour disorder, that was very atypical of her patient to act violently as he normally is a very nice person. This was never officially diagnosed before, but was suspected based on the information provided from the patient's . Neurodegenrative disease could be the underlying cause of the patient's orthostatic hypotension (due to impared vasoconstriction), as this could be one of the manifestations of this disorder , and supports this diagnosis. 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 However, this diagnosis is more common in females than in males. but this diagnosis would not explain the sudden rapid change in this patient's behavior. Plan fall precautions Vitamin B12 and Folic acid are unremarkable check EEG check serology for VDRL, check for HIV LP to evaluate for elevated proteins, Protein S100 subtype. Obtain MRI of the brain would help with evaluation of recurrent vascular insults , caudate nucleus changes that could be related to CJD dementia, or potamin nucleaus changes Neurology evaluation is warranted Status: Acute Time with Patient: Greater than 30
[2016-12-04] MEDS: ZIPRASIDONE 20 MG VIAL IM PRN (14:53)
--- NOTE | 2016-12-04 16:33 | MR ---
EXAMINATION TYPE: MR angio head wo con, MR brain wo/w mraneck wo/wcon DATE OF EXAM: 12/04/2016 COMPARISON: CT brain dated 12/03/2016 HISTORY: r/o Creutzfeld Valentín Disease TECHNIQUE: Multiplanar, multisequence images of the brain and brainstem is performed without and with IV contras t, utilizing 20 mL intravenous MultiHance . Time of flight images focusing on the [place] an d neck were performed without contrast. 2-D and 3-D postprocessing imaging is performed. FINDINGS: There is no T2 hyperintensity within the caudate, globus pallidus, or thalami. No restricted diffusio n is seen within the basal ganglia. Diffusion weighted images demonstrate no evidence of a recent infarct or other diffusion abnormality. There is no extra-axial fluid collection. Periventricular T2/FLAIR hyperintensity is appreciated, w hich is nonspecific and most commonly on the basis of microangiopathy.. The ventricular system and c isternal spaces are normal in size and appearance. The brain volume is age appropriate. Midline structures demonstrate normal morphology. The craniocervical junction appears within normal limits. Mucosal retention cyst is seen within the left maxillary sinus. The remaining visualized sin uses are clear and the globes are intact. [place] is intact. No focal stenosis or aneurysmal outpouching of the intracranial arterial vasculature. Flow-voids are seen within the dural venous sinuses. Vertebral arteries are codominant. No evidence of significant stenosis within the carotid systems. No evidence of carotid or vertebral d issection. No evidence of carotid or vertebral aneurysm. No abnormal enhancement is seen on postcontrast images. IMPRESSION: 1. No MRI findings to correspond to the patient's possible diagnosis of Creutzfeldt Valentín disease. 2. Unremarkable MR of the brain with no evidence of acute territorial infarct, mass effect, or abnorm al enhancement. 3. No evidence of focal stenosis, aneurysm, occlusion, or dissection of the carotid system, vertebral system, or intracranial arterial vasculature.
--- NOTE | 2016-12-04 17:39 | P.PN ---
Progress Note - Text Interval History: Patient is a 65-year-old male who became quite agitated last evening requiring Geodon 10 mg IM. This morning when I spoke with him patient was alert and was rambling and not relevant in his responses. He remained disoriented but did have his eyes open. Patient was not able to respond to questions relevantly. Patient later this afternoon again became quite agitated when I was speaking with him and required Geodon again prior to an MRI. Mental Status: Appearance/Attitude: Patient was dressed in a hospital gown, makes intermittent eye contact and at times can become agitated Behavior: Patient does not display any psychomotor retardation but can easily become agitated Speech/Language: Patient is seen talking in his room, was spontaneous with me, spoke in a normal tone and rhythm but was not relevant Thought Process: Patient is not goal-directed, his answers are not relevant at times he is rambling Thought Content: Patient is observed to be talking to himself but is unable to verbalize if he is hearing voices and at times he is having visual hallucinations. Patient can become easily agitated and irritable. Suicidal/Homicidal Ideation: Patient is not making any self-harm gestures but can easily become agitated and aggressive. Sensorium/Cognition: Patient is alert, oriented to person and to situation but not to date or city. Unable to assess his cognitive status further due to his inability to respond relevantly to questions. Patient was able to name object of the posadas, thought a tube of toothpaste was ointment, and thought a toothbrush was a scraper. Mood/Affect: Patient's mood can vary between being cooperative and being agitated and aggressive. Insight/Judgement: Patient's insight and judgment are impaired. Assessment: Patient continues to present with symptoms of confusion, disorientation however patient has shown some improvement in that he is keeping his eyes open and is more alert. However he continues to have periods of time where he becomes agitated and aggressive requiring medication. He has been able to feed himself today. Patient's records from his neurologist were reviewed which revealed that the patient had been reporting memory issues since sometime in 2014 and had also been reporting periods of stuttering, visual disturbances and eye pain. Patient had reported feeling depressed and anxious due to the increased need to assist his who has multiple sclerosis and is a paraplegic per the neurologist record. Patient was placed on Prozac and was last seen by his neurologist in May 2016. His dose of both Prozac and Lamictal were increased after that appointment. Patient's serology for syphilis was negative, HIV serology was negative and patient had an MRI today that revealed no pathology that could explain his current symptoms. Plan: Patient continues to be disoriented, not able to respond to questions relevantly, intermittently becoming agitated and requiring Geodon on an as- needed basis. Patient sleeps after geodon however his orientation and confusion do not improve. At this time his serology tests of all been negative and his MRI has not revealed any possible cause for his cognitive status. We'll discuss the case further with medical language specialist regarding further testing and possible etiology. And await neurology consult.
[2016-12-05] MEDS: LORazepam 1 MG TAB PO PRN (01:15)
[2016-12-05] MEDS: ACETAMINOPHEN TAB 325 MG TAB PO PRN (01:17)
[2016-12-05] MEDS ORDERED: WATER FOR INJECTION, STERILE 10 ML IV ONE ×2 (07:37→07:49)
[2016-12-05] MEDS: ZIPRASIDONE 20 MG VIAL IM PRN (07:40)
[2016-12-05] MEDS: LORazepam 2 MG/ML SYRINGE IM PRN ×2 (07:40→20:51)
[2016-12-05] MEDS ORDERED: ZIPRASIDONE 20 MG VIAL IM ONE (07:49)
[2016-12-05] MEDS ORDERED: ZIPRASIDONE 20 MG VIAL IM STA (07:56)
[2016-12-05] MEDS: LISINOPRIL 5 MG TAB PO SCH (09:25)
[2016-12-05] MEDS: NICOTINE 14MG/24HR PATCH TRANSDERM SCH (09:25)
[2016-12-05] MEDS: ATORVASTATIN 80 MG TAB PO SCH (09:25)
[2016-12-05] MEDS: ASPIRIN 325 MG TAB PO SCH (09:25)
[2016-12-05] MEDS: lamoTRIgine 100 MG TAB PO SCH ×2 (09:25→21:06)
--- NOTE | 2016-12-05 12:12 | P.PN ---
Subjective Principal diagnosis: Altered mentation Patient is a 65-year-old male with a past medical history of seizure disorder, alcohol abuse, and depression who initially presented with behavioral changes. We have been asked to review the case due to rapidly progressive dementia, behavioral disturbances, and recurrent falls. Further detailed review of these please see note I Dr. Johnson on 12/04/2016. We are currently awaiting lumbar puncture, EEG, and neurology evaluation. Patient became increasingly agitated today and was therefore given Geodon. On my exam patient is sedated and unable to adequately follow commands or . Case was discussed with Dr. Sarabia at [facility], outside medical records were reviewed , and past medical information from our hospital is reviewed as well. Unable to obtain a review of systems secondary to patient being unable to verbally communicate at this time. Objective - Vital Signs Vital signs: Vital Signs Temp 98.1 F 12/05/16 06:39 Pulse 83 12/05/16 06:39 Resp 16 12/05/16 06:39 BP 130/60 12/05/16 06:39 Pulse Ox 96 12/03/16 18:45 - Exam General: non toxic, no distress, appears at stated age Derm: no rashes, no lesions Head: atraumatic, normocephalic, symmetric Eyes: EOMI, no lid lag, anicteric sclera ENT: no post nasal drip, no thrush Mouth: no lip lesion, mucous membranes dry Cardiovascular: S1S2 reg, no murmur, positive posterior tibial pulse bilateral, Lungs: CTA bilateral, no rhonchi, no rales , shallow breathing Abdominal: soft, nontender to palpation, no guarding, no appreciable organomegaly Ext: no gross muscle atrophy, no edema, no contractures Neuro: CN II-XI grossly intact, weight touch intact all 4 extremities, no muscle rigidity, no cogwheeling, Babinskis upgoing bilaterally, brisk reflexes on left upper extremity, normal reflexes in right upper extremity, no clonus, no tremors, no nystagmus Psych: Somnolent but arousable, intermittently able to follow commands - Labs CBC & Chem 7: 12/03/16 20:24 12/03/16 20:24 Assessment and Plan (1) Rapidly progressive dementia Narrative/Plan: Differential diagnosis is wide in this case, could consider; - Vascular dementia but this appears unlikely as an MRA of the brain is negative. - NPH could be considered with report of abnormal behaviors and increased falls- lumbar puncture with opening pressure would be beneficial for this diagnosis, however with ventricle size is normal and normal MRI would also doubt diagnoses - Alpha synucleinopathy neurodegenrative disease, does progress into parkinson's, dementia with lewy body disease, and multiple system atrophy (MSA) , agree that neurodegenrative disease could be the underlying cause of the patient's orthostatic hypotension (due to impared vasoconstriction), physical exam did not supprot parkinson's and MRI is normal without atrophy - Weirnicke encephalopathy is a possibility, though it appears that his drinking was not quite this severe, will switch thiamine to IM - Cerberitis/vasculitis- check ESR and CRP - Possible CJD - Await neurology eval, LP, and EEG. - VDRL negative - B 12, TSH, Ammonia, HIV, and UA are within normal - MRI/MRA is normal Status: Acute (2) Seizure disorder Narrative/Plan: Continue lamicatal, neurology recs Status: Acute (3) Alcohol use Narrative/Plan: cessation recommended, will switch Thiamine to IM as patient has not been taking oral Status: Acute (4) Orthostatic hypotension Narrative/Plan: Currently unsafe to rechek orthostatic vitals, once patient is cooperative and able to follow commands then recheck Status: Acute Plan: Discussed with: Psych Anticipated discharge place: halfway care facility A total of 45 minutes was spent on the this complex patient. Time with Patient: Greater than 30
[2016-12-05] MEDS: MULTIVITAMINS, THERA 1 EACH TAB PO SCH (12:39)
[2016-12-05] MEDS: THIAMINE 100 MG/ML 2 ML VIAL IM SCH (13:00)
[2016-12-05] MEDS: THIAMINE 100 MG TAB PO SCH (15:09)
--- NOTE | 2016-12-05 16:02 | P.PN ---
Progress Note - Text Interval History: Patient is a 65-year-old male who became severely agitated this morning, requiring injection of Geodon 10 mg IM 2. Patient now sedated and sleeping. Patient awake and agitated, yelling out that he wants it taken out of him and put into someone else, patient has been in his bed all day and has had some water but has not eaten. Mental Status: Patient is lying in his bed, when i spoke to him he became quite agitated. Patient has been sleeping after the geodon this am, he is at times agitated and yelling out, at times is responding to staff and cooperating. Patient remains confused, oriented only to person and situation. Assessment: Patient has had a workup including an MRI that has revealed no pathology, his serology has been negative and his B12 and folate were also within normal limits. Patient appears to clear somewhat with the IM Geodon as yesterday after receiving 10 mg IM due to agitation later in the early evening the patient was more responsive and cooperative. Plan: I spoke with the neurologist about the workup, patient has had a 2 year reported memory problems, his reports a shuffling gait, inability to solve problems and becoming increasingly irritable, he was using several glasses a wine a day over the last 6 months. he had reported stuttering to his neurologist in May and visual disturbances and pain. His brother reports patient was having visual hallucinations with him, increasing irritation. Patient has no prior history of psychiatric problems, and he was on prozac for depression started by his neurologist. Patient retired in 2002 due to his seizure disorder and his lamictal was recently increased to 400mg/day from 300mg /day. Patient has a guardianship hearing tomorrow and will do lumbar tap after we can get consent from his guardian. I will start patient on zyprexa 2.5mg bid to decrease his agitation and continue prn geodon and ativan as well. He continues to require hospitalization.
[2016-12-05] MEDS: DOCUSATE 100 MG CAP PO SCH ×2 (20:13→22:08)
[2016-12-05] MEDS ORDERED: LORazepam 1 MG TAB PO PRN (20:20)
--- NOTE | 2016-12-05 20:41 | P.CNNES ---
History of Present Illness Consult date: 12/05/16 History of Present Illness: The patient is a 65-year-old man who presented to the emergency room out in by family due to altered mental status. Kimberlyn the patient has been depressed and agitated at home. Was petitioned for admission by his brother. The patient had become very agitated. Kimberlyn for 6 months the patient has been having what his brother terms "" on trusting behavior and been using profanity. Been having some memory issues as well for 2 years and was sitting Dr. Grove for that as well as seizures.'s been on Lamictal for seizure control. was admitted to the psychiatry floor with these symptoms. ALLERGIES requested to see the patient regarding possible dementia. Patient has been having up apparently some shuffling gait and frequent fall. Patient is unable to give a clearcut history. His Speech is clear but disorganized. Her is no obvious a aphasia. The patient denied any headache or back pain. He did point to his right hip which he states he fell on and hurt. The patient has been having hallucinations visual and auditory during his hospital stay and very agitated. There have been fluctuations in his mood. At home he was taking Prozac 40 mg twice a day for depression. Review of Systems ROS unobtainable: due to mental status Past Medical History Past Medical History: Hyperlipidemia, Hypertension History of Any Multi-Drug Resistant Organisms: None Reported Past Surgical History: Hernia Repair Past Psychological History: Depression Smoking Status: Never smoker Past Alcohol Use History: Occasional Past Drug Use History: None Reported Medications and Allergies Home Medications Medication Instructions Recorded Confirmed Type Aspirin 325 mg PO DAILY 11/29/16 11/29/16 History Atorvastatin [Lipitor] 80 mg PO DAILY 11/29/16 11/29/16 History FLUoxetine HCL [PROzac] 40 mg PO BID 11/29/16 11/29/16 History Lysine [l-Lysine] 500 mg PO DAILY 11/29/16 11/29/16 History Multivitamins, Thera [Multivitamin 1 tab PO DAILY 11/29/16 11/29/16 History (formulary)] lamoTRIgine 200 mg PO BID 11/29/16 11/29/16 History Allergies Allergy/AdvReac Type Severity Reaction Status Date / Time No Known Allergies Allergy Verified 11/29/16 18:59 Physical Examination - Vital Signs Vital Signs: Vital Signs Temp Pulse Pulse Resp BP BP 12/05/16 16:43 89 142/85 12/05/16 06:39 98.1 F 83 16 130/60 12/04/16 22:55 89 138/61 - EENT EENT: PERRL, hearing intact, vision intact - Respiratory Respiratory: lungs clear - Cardiovascular Cardiovascular: regular rate - Neurologic Mental status he was unable to give his date he was able to name his he was able to maintain name his 2 children 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 he did not know the month he did not know the year when asked what state where living and he said [place] he was unable to name the president he had difficulty with addition and subtraction was able to spell the words world and house but unable to spell it backwards when given something to read he said he could not read or tremor memory was impaired and was impaired's unable to repeat is unable to follow two-step commands Cranial nerve examination: PERRL, EOMI, VFF, face symmetric, tongue midline Speech examination: other (His speech was articulate but unorganized) Detailed motor examination: grossly full strength in all extremities (At times shuffling) - Psychiatric Psychiatric: agitated, depressed Results - Laboratory Findings CBC and BMP: 12/03/16 20:24 12/03/16 20:24 Abnormal Lab Findings: Abnormal Labs 11/29/16 11/29/16 12/01/16 17:10 17:10 09:09 Lymphocytes # 0.8 L 0.8 L Carbon Dioxide BUN 21 H Glucose 100 H POC Glucose (mg/dL) Total Protein 6.1 L 12/01/16 12/03/16 12/04/16 09:09 20:24 08:05 Lymphocytes # Carbon Dioxide 20 L BUN 26 H 25 H Glucose 109 H POC Glucose (mg/dL) 111 H Total Protein Assessment and Plan (1) Altered mental state Status: Acute Code(s): R41.82 - ALTERED MENTAL STATUS, UNSPECIFIED (2) Rapidly progressive dementia Status: Acute Code(s): F03.90 - UNSPECIFIED DEMENTIA WITHOUT BEHAVIORAL DISTURBANCE (3) Seizure disorder Status: Chronic Code(s): G40.909 - EPILEPSY, UNSP, NOT INTRACTABLE, WITHOUT STATUS EPILEPTICUS Plan: The patient is a 65-year-old man whose had progressive decline in mental status over the past 6 months with subacute deterioration in the last 4 weeks. Is admitted to the hospital with altered mental status. He has a history of recent visual and auditory hallucinations as well as shuffling gait. We would need to consider the diagnosis of Parkinson's with dementia. His TSH was normal his B12 was normal and we'll check VDRL. Also recommend EEG. He has had an MRI of the brain which was normal There is no febrile illness to suggest infection recommend discontinue antipsychotics and/dopamine blockers. We'll start patient on low-dose Sinemet . Can use ,when necessary benzodiazepine for agitation
[2016-12-05] MEDS ORDERED: OLANZapine 2.5 MG TAB PO SCH (21:00)
[2016-12-05] MEDS: CARBIDOPA-LEVODOPA 25-100 MG 1 EACH TAB PO SCH (21:06)
[2016-12-05] MEDS ORDERED: LORazepam 2 MG/ML SYRINGE IM PRN (22:31)
[2016-12-06] MEDS: LORazepam 1 MG TAB PO PRN ×3 (00:01→21:57)
[2016-12-06] MEDS: NICOTINE 14MG/24HR PATCH TRANSDERM SCH ×2 (10:38→10:54)
[2016-12-06] MEDS: DOCUSATE 100 MG CAP PO SCH ×3 (10:39→20:04)
[2016-12-06] MEDS: lamoTRIgine 100 MG TAB PO SCH ×3 (10:39→20:05)
[2016-12-06] MEDS: CARBIDOPA-LEVODOPA 25-100 MG 1 EACH TAB PO SCH ×4 (10:40→20:04)
[2016-12-06] MEDS: ASPIRIN 325 MG TAB PO SCH ×2 (10:40→10:53)
[2016-12-06] MEDS: ATORVASTATIN 80 MG TAB PO SCH ×2 (10:40→10:53)
[2016-12-06] MEDS: LISINOPRIL 5 MG TAB PO SCH ×2 (10:40→10:59)
[2016-12-06] MEDS: THIAMINE 100 MG/ML 2 ML VIAL IM SCH (10:51)
[2016-12-06] MEDS: MULTIVITAMINS, THERA 1 EACH TAB PO SCH (14:16)
--- NOTE | 2016-12-06 16:06 | P.PN ---
Progress Note - Text Interval History: Patient is a 65-year-old male who was seen this morning and several times during the day. Patient has been in his room with a sitter throughout the day, he did cooperate with an EEG earlier this afternoon. Patient has been drinking fluids with assistance from staff as well as staff assisting him in eating his meals. Patient has had no episodes of severe agitation since yesterday morning. Patient has required several doses of Ativan on an as-needed basis for becoming irritable and agitated. Patient last evening did go after another male here as well as pushing a mattress toward the sitter in the room. He did not become assaultive or combative on these occasions and responded to Ativan, the patient was initially refusing oral meds was given Ativan IM and then did take it orally he has not taken any medication orally today other than Ativan at 11 AM. Mental Status: Appearance/Attitude: Patient is in a hospital gown, appears disheveled at times has his eyes closed at other times has some open makes intermittent eye contact Behavior: Patient was sitting in his bed on one occasion, sitting in a reclining chair on another occasion, and patient does at time become irritable and agitated Speech/Language: Patient is at times speaking to himself and at times will respond to questions Thought Process: Patient is not goal-directed, his responses are irrelevant and at times do not make sense Thought Content: Patient at times has reported seeing things in the room, he is suspicious and 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 Patient then stated he was embarrassed. Suicidal/Homicidal Ideation: Patient is not voicing any suicidal ideation and at times when he has become agitated he has become combative Sensorium/Cognition: Patient is alert, sleeping on and off during the day, oriented to person and location Mood/Affect: Patient's mood remains irritable Insight/Judgement: Patient's insight and judgment are impaired. Assessment: neurology saw the patient last evening and recommended that we hold all antipsychotics and use the benzodiazepines to control any agitation. Patient was also begun on Sinemet to target his parkinsonian symptoms, but he has yet to take an oral dose. Patient has not had any episodes of combative behavior has required Ativan on an as-needed basis been becoming irritable and agitated. Patient remains disoriented, his speech is rambling, irrelevant and he appears at times to be responding to visual hallucinations. Patient had an EEG today and he was cooperative with that results are pending. Plan: Patient had his commitment hearing today, he did not attend. Patient is being maintained on Ativan on an as-needed basis to control his agitation and has been started on Sinemet. Patient has not been compliant with oral meds today, he has been drinking fluids and has been eating with assistance from staff. Patient remains disoriented, unable to follow simple commands, he is alert and at times is easily irritated especially when being questioned. Will continue the current treatment plan and observe his response over the weekend. I spoke with his who reported that she had obtained guardianship this afternoon for her . I discussed with her the results of the testing, that all of the testing we have done to date has not revealed any etiology for his cognitive difficulties. I discussed the neurologist recommendations with her and the placement of the patient on Sinemet for parkinsonian symptoms, I discussed our current treatment plan of using Ativan only to control his agitation and that we would observe his response to this over the next several days.she reported to me that he had spoken with her on the phone and initially sounded but she stated that a further conversation went the less sense he made. She stated that he again asked her on several occasions what she looked like.
--- NOTE | 2016-12-06 19:18 | P.PN ---
Subjective The patient is a 65-year-old man who was admitted to the hospital with altered mental status. Discontinued the antipsychotic medications and he seems a bit more calmer today with less combative outbursts. He is getting Ativan when necessary for agitation to be more focused today and did respond with more appropriate answers. He is still generally confused. He denies any headache or neck pain . He is better with concrete functions such as adding and spelling he was able to do simple addition and spell several words correctly. When he was asked to spell hospital , he spelled '[facility] ' Objective - Vital Signs Vital signs: Vital Signs Temp 98.1 F 12/05/16 06:39 Pulse 87 12/06/16 18:08 Resp 16 12/06/16 18:08 BP 129/88 12/06/16 18:08 Pulse Ox 96 12/03/16 18:45 Intake & Output 12/06/16 12/06/16 12/07/16 06:59 18:59 06:59 Intake Total 480 Balance 480 Intake: Oral 480 - Constitutional General appearance: Present: disheveled - EENT Eyes: Present: EOMI ENT: Present: hearing grossly normal - Neurologic Neurologic Comment(s): Mental status he was awake His speech was still jumbled however at times it was organized. He was able to spell several words including principal, hospital , world. He is judgment was still impaired. There is no a aphasia or dysarthria. He expressed a desire to go home for the weekend to see his area spontaneous speech was still disorganized - Labs CBC & Chem 7: 12/03/16 20:24 12/03/16 20:24 Assessment and Plan (1) Altered mental state Status: Acute Code(s): R41.82 - ALTERED MENTAL STATUS, UNSPECIFIED (2) Rapidly progressive dementia Status: Acute Code(s): F03.90 - UNSPECIFIED DEMENTIA WITHOUT BEHAVIORAL DISTURBANCE (3) Seizure disorder Status: Chronic Code(s): G40.909 - EPILEPSY, UNSP, NOT INTRACTABLE, WITHOUT STATUS EPILEPTICUS Plan: The patient is a 65-year-old man with history of mental status. Has a history of depression. He has a history of memory loss which has been ongoing for several months. Started on Sinemet yesterday for Parkinson's and antipsychotics were held. Recommend increase Sinemet to 3 times a day. Also we 'll consider adding Exelon patch for dementia
[2016-12-06] MEDS: RIVASTIGMINE 4.6MG/24HR PATCH TRANSDERM SCH (20:04)
[2016-12-06] MEDS: ACETAMINOPHEN TAB 325 MG TAB PO PRN (21:57)
[2016-12-07] MEDS: ACETAMINOPHEN TAB 325 MG TAB PO PRN (05:18)
[2016-12-07] MEDS: LORazepam 1 MG TAB PO PRN ×2 (05:18→16:25)
[2016-12-07 05:53] LABS: Appearance,Urine Clear (Clear); Bilirubin,Urine Negative (Negative); Glucose,Urine (UA) Negative (Negative); Ketones,Urine Negative (Negative); Leukocyte Esterase,Urine Negative (Negative); Nitrite,Urine Negative (Negative); PH, Urine 5.5 (5.0-8.0); Protein,Urine Trace (Negative); Specific Gravity,Urine 1.024 (1.001-1.035); UA Billing (MACRO vs. MICRO) CHEM; Urobilinogen,Urine <2.0 mg/dL (<2.0)
[2016-12-07] MEDS: ASPIRIN 325 MG TAB PO SCH (09:09)
[2016-12-07] MEDS: CARBIDOPA-LEVODOPA 25-100 MG 1 EACH TAB PO SCH ×3 (09:09→21:19)
[2016-12-07] MEDS: DOCUSATE 100 MG CAP PO SCH ×2 (09:10→21:19)
[2016-12-07] MEDS: NICOTINE 14MG/24HR PATCH TRANSDERM SCH (09:10)
[2016-12-07] MEDS: ATORVASTATIN 80 MG TAB PO SCH (09:10)
[2016-12-07] MEDS: lamoTRIgine 100 MG TAB PO SCH ×2 (09:10→21:19)
[2016-12-07] MEDS: THIAMINE 100 MG/ML 2 ML VIAL IM SCH (09:10)
[2016-12-07] MEDS: MULTIVITAMINS, THERA 1 EACH TAB PO SCH (12:02)
--- NOTE | 2016-12-07 12:44 | P.PN ---
Progress Note - Text Interval history: Patient is seen in cross coverage today for Dr. Sarabia. He is seated in a chair in his room. He seems to relay that he slept last night and he is eating better. He feels that his mood is doing pretty good because he hasn't eaten like that in quite some time. Mental status exam: He is alert and overall cooperative. He is not showing any current agitation. His thought processes do show some disorganization. he makes reference to me looking like a lot of the other people that work here. He denies any thoughts of harm to self or others. Regarding any hallucinations he reports that he does hear a buzzing noise. Plan: We'll maintain current treatment. He is currently on when necessary Ativan for any agitation. Antipsychotic medication has been discontinued. We' ll continue to monitor his status and monitor his response.
--- NOTE | 2016-12-07 15:20 | P.PN ---
Subjective Principal diagnosis: Altered mentation Patient is a 65-year-old male with a past medical history of seizure disorder, alcohol abuse, and depression who initially presented with behavioral changes. We have been asked to review the case due to rapidly progressive dementia, behavioral disturbances, and recurrent falls. We are currently awaiting EEG results. He was seen by neurology who felt that this is likely Parkinson's related. He was started on increased to 3 times daily. He was also started on Exelon patch. He has improved appetite, sleep pattern, and slightly improved mentation Patient seen and examined at bedside. He complains of not having his glasses and being unable to function without rebound. He denies chest pain, shortness of breath, nausea, vomiting, and diarrhea. He states he feels fine. He acknowledges that he is having problems thinking. He repeatedly asked me "you know when I mean". Today he is able to tell me that he is at a hospital, we are located in [place] , he believes the city of [place]. He believes it is 2019. 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 He states that the food he ate today was not that enjoyable. He is aware that he is still having difficulty with memory. He refers to himself as "dumb". He also tell me that if God takes him he has to take me with him. Objective - Vital Signs Vital signs: Vital Signs Temp 97.7 F 12/07/16 07:46 Pulse 78 12/07/16 07:46 Resp 20 12/07/16 07:46 BP 141/95 12/07/16 07:46 Pulse Ox 96 12/03/16 18:45 Intake & Output 12/06/16 12/07/16 12/07/16 18:59 06:59 18:59 Intake Total 480 480 177 Balance 480 480 177 Intake: Oral 480 480 177 - Exam General: non toxic, no distress, appears at stated age, disheveled Derm: no rashes, no lesions Head: atraumatic, normocephalic, symmetric Eyes: EOMI, no lid lag, anicteric sclera ENT: no post nasal drip, no thrush Mouth: no lip lesion, mucus membranes moist Cardiovascular: S1S2 reg, no murmur, positive posterior tibial pulse bilateral, Lungs: CTA bilateral, no rhonchi, no rales , no accessory muscle use Abdominal: soft, nontender to palpation, no guarding, no appreciable organomegaly Ext: no gross muscle atrophy, no edema, no contractures Neuro: CN II-XI grossly intact, no focal neuro deficits Psych: Alert, oriented to self and place, anxious, difficulty with comprehension - Labs CBC & Chem 7: 12/03/16 20:24 12/03/16 20:24 Labs: Abnormal Lab Results - Last 24 Hours (Table) 12/07/16 Range/Units 05:40 Urine Protein Trace H (Negative) Assessment and Plan (1) Rapidly progressive dementia Narrative/Plan: Differential diagnosis is wide in this case, could consider; - Found to be secondary to Parkinson disease and possible Lewy body dementia as per neurology recommendations. Started on Sinemet and an Exelon patch. - Await EEG. - VDRL negative - B 12, TSH, Ammonia, HIV, and UA are within normal - MRI/MRA is normal Status: Acute (2) Seizure disorder Narrative/Plan: Continue lamicatal, neurology recs Status: Chronic (3) Alcohol use Narrative/Plan: cessation recommended, will switch thiamine to oral as patient has been taking oral medications Status: Acute (4) Orthostatic hypotension Narrative/Plan: Persistently positive orthostatic hypotension as evidenced by vital signs checked on 12/06/2016. This could be secondary to autonomic dysfunction from Parkinson's disease or Sinemet. Would consider slow transition from sitting to standing. Status: Acute Plan: Discussed with: nursing Anticipated discharge place: [facility] facility A total of 25 minutes was spent on the this complex patient.
--- NOTE | 2016-12-07 18:30 | EEG ---
DATE OF EE12/06/16 INDICATIONS FOR EXAMINATION: This patient is a 65-year-old male being evaluated for acute mental status changes and aggressive behavior. EEG to rule out seizure disorder. AGE: 65. EEG FINDINGS: A routine 21 channel awake digital EEG recording was accomplished utilizing the 10-20 international system with bipolar and referential montages. The background activity in the most alert resting state consists of a low to medium amplitude, poorly developed and poorly sustained 6- 7 Hz activity over the posterior head regions. This posterior rhythm attenuates to eye opening. There is a small amount of low amplitude 18-20 Hz beta activity seen maximally over the anterior head regions. Muscle and movement artifact was observed on several occasions during the tracing. Hyperventilation was not performed. Photic stimulation at flash frequencies of 2-30 Hz produced a minimal occipital driving response. No epileptiform discharges were seen. IMPRESSION: This EEG is mildly abnormal in a diffuse fashion due to slight slowing of the EEG background. The EEG failed to reveal any focal, lateralized or epileptiform abnormalities. Clinical correlation is recommended. MTDD
--- NOTE | 2016-12-07 20:40 | XR ---
EXAMINATION TYPE: XR abdomen 1V DATE OF EXAM: 12/07/2016 COMPARISON: NONE INDICATION: Abdomen pain no bowel movement x2 weeks TECHNIQUE: Single view abdomen supine view with mobile apparatus FINDINGS: Fecal debris is throughout the colon. This is greatest in the lower pelvis. Note is made of surgical clips in the right hemipelvis overlying the acetabulum. Psoas margins are normal. No organomegaly is present. IMPRESSION: 1. Moderate to marked fecal retention.
[2016-12-07] MEDS: RIVASTIGMINE 4.6MG/24HR PATCH TRANSDERM SCH (21:18)
[2016-12-07] MEDS ORDERED: MINERAL OIL 133 ML ENEMA RECTAL ONE (21:45)
--- NOTE | 2016-12-07 21:52 | P.PN ---
Progress Note - Text Received call from nurse Danielle from [facility], that pt. is c/o abdominal discomfort due to constipation and reported that he has not had BM for more than a week and that he is feeling "backed-up" Abdominal x-ray was ordered earlier today and x-ray films and reports was reviewed. Noted lot of stool in the colon, pt. is already on MOM and Colace, will try [employer] fleet enema once and monitor. Nurse was informed on the order and to call us with results.
--- NOTE | 2016-12-07 23:51 | P.PN ---
Subjective Patient is a 65-year-old man admitted to the hospital with altered mental status and psychosis. The patient is doing better today. He is more cooperative and less hostile. He is answering questions more appropriately. He is still confused however. He expresses a desire to go home. He states his has MS and he needs to take care of her. Seems more aware of his situation. He is oriented to place and knows it is summertime but is unable to give the date he denies any headache dizziness or weakness area and he is seems to have tolerated the Sinemet Objective - Vital Signs Vital signs: Vital Signs Temp 97.7 F 12/07/16 07:46 Pulse 113 H 12/07/16 16:27 Resp 18 12/07/16 16:27 BP 128/88 12/07/16 16:27 Pulse Ox 96 12/03/16 18:45 Intake & Output 12/07/16 12/07/16 12/08/16 06:59 18:59 06:59 Intake Total 480 177 Balance 480 177 Intake: Oral 480 177 - Constitutional General appearance: Present: disheveled - EENT Eyes: Present: EOMI, PERRLA - Neurologic Neurologic Comment(s): Mental status he was awake he was oriented to person and place he was able to do some and addition and spelling he expressed a desire to go home he was unable to recall what he had eaten for dinner. There was no a aphasia or dysarthria but states it did not taste good Neurologic: Present: CNII-XII intact - Musculoskeletal Musculoskeletal: Present: strength equal bilaterally - Labs CBC & Chem 7: 12/03/16 20:24 12/03/16 20:24 Labs: Abnormal Lab Results - Last 24 Hours (Table) 12/07/16 Range/Units 05:40 Urine Protein Trace H (Negative) Assessment and Plan (1) Altered mental state Status: Acute Code(s): R41.82 - ALTERED MENTAL STATUS, UNSPECIFIED (2) Rapidly progressive dementia Status: Acute Code(s): F03.90 - UNSPECIFIED DEMENTIA WITHOUT BEHAVIORAL DISTURBANCE (3) Seizure disorder Status: Chronic Code(s): G40.909 - EPILEPSY, UNSP, NOT INTRACTABLE, WITHOUT STATUS EPILEPTICUS Plan: The patient is a 65-year-old man with dementia and psychosis. He has been improving over the last few days. He has been started on Sinemet as well as Exelon. He had an EEG which showed mild slowing only. He had a Lamictal level which has been therapeutic. There is no evidence of seizure activity. He does have a history of seizures which she has been on Lamictal. He has been treated now for parkinsons with dementia. Recommend physical therapy to assess gait
[2016-12-08] MEDS ORDERED: BISACODYL 10 MG SUPP RECTAL ONE (02:30)
[2016-12-08] MEDS: ACETAMINOPHEN TAB 325 MG TAB PO PRN (06:00)
[2016-12-08] MEDS: LORazepam 1 MG TAB PO PRN ×3 (06:00→18:48)
[2016-12-08] MEDS: ATORVASTATIN 80 MG TAB PO SCH (10:08)
[2016-12-08] MEDS: ASPIRIN 325 MG TAB PO SCH (10:08)
[2016-12-08] MEDS: CARBIDOPA-LEVODOPA 25-100 MG 1 EACH TAB PO SCH ×3 (10:08→21:06)
[2016-12-08] MEDS: NICOTINE 14MG/24HR PATCH TRANSDERM SCH (10:08)
[2016-12-08] MEDS: lamoTRIgine 100 MG TAB PO SCH ×2 (10:08→21:05)
[2016-12-08] MEDS: DOCUSATE 100 MG CAP PO SCH ×2 (10:08→21:06)
[2016-12-08] MEDS: POLYETHYLENE GLYCOL 3350 17 GM POWD.PACK PO SCH (11:49)
[2016-12-08] MEDS: THIAMINE 100 MG TAB PO SCH (11:50)
[2016-12-08] MEDS: MULTIVITAMINS, THERA 1 EACH TAB PO SCH (11:50)
--- NOTE | 2016-12-08 14:19 | P.PN ---
Progress Note - Text Interval history: Patient is seen in cross coverage today for Dr. sarabia. He was reported by nursing staff to be agitated was apparently on his floor curled up currently is seen in his room with staff present and is lying in bed resting. He does become alert with name-calling and presents in a more negative fashion today with his thinking. He makes reference to that he is not eating until he sees his children. He seems to relay that sleep is the same. Mental status exam: He is found in his room lying in bed. He is alert with name -calling, thought processes are disorganized. He presents in a somewhat negative fashion today relaying that he is not going to be eating until he sees his children. His thought content seems to be negative. He does not make any reference to harm to self or others. He does not show any significant degree of agitation. Plan: Patient will be maintained on current psychotropic medication regimen will watch closely for any agitation. He did receive [address] dose [address] Sarabia will be resuming care this patient starting tomorrow.
[2016-12-08] MEDS: RIVASTIGMINE 4.6MG/24HR PATCH TRANSDERM SCH (21:05)
[2016-12-09] MEDS ORDERED: LACTULOSE 20 GM/30 ML CUP PO ONE (08:02)
--- NOTE | 2016-12-09 08:28 | P.PN ---
Subjective Principal diagnosis: Constipation Patient is a 65-year-old male with a past medical history of seizure disorder, alcohol abuse, and depression who initially presented with behavioral changes. We have been asked to review the case due to rapidly progressive dementia, behavioral disturbances, and recurrent falls. He was seen by neurology who felt that this is likely Parkinson's related. He is currently receiving an Exelon patch and Sinemet. Patient seen and examined at bedside with nurse present. Thinking much more disorganized today than on the last day I saw him. He also is having an intention stutter. When asked if he was having pain initially point I am no, when he was asked again later if he is having pain he said yes but when asked where he shrugs that he does not know. He denies any chest pain, shortness of breath, nausea, vomiting, or constipation. He is able to tell me that he had a shower yesterday. He is unable to tell me where he is at note that it is 2016. 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 Objective - Vital Signs Vital signs: Vital Signs Temp 97.8 F 12/09/16 06:50 Pulse 75 12/09/16 06:50 Resp 18 12/09/16 06:50 BP 123/58 12/09/16 06:50 Pulse Ox 96 12/03/16 18:45 Intake & Output 12/08/16 12/09/16 12/09/16 18:59 06:59 18:59 Intake Total 236 Balance 236 Intake: Oral 236 - Exam General: non toxic, no distress, appears at stated age, disheveled Derm: no rashes, no lesions Head: atraumatic, normocephalic, symmetric Eyes: EOMI, no lid lag, anicteric sclera ENT: no post nasal drip, no thrush Mouth: no lip lesion, mucus membranes moist Cardiovascular: S1S2 reg, no murmur, positive posterior tibial pulse bilateral, Lungs: CTA bilateral, no rhonchi, no rales , no accessory muscle use Abdominal: + BS, soft, nontender to palpation, no guarding, no appreciable organomegaly Ext: no gross muscle atrophy, no edema, no contractures Neuro: CN II-XI grossly intact, no focal neuro deficits Psych: Alert, oriented to self and time, anxious, difficulty with comprehension - Labs CBC & Chem 7: 12/03/16 20:24 12/03/16 20:24 Assessment and Plan (1) Constipation Narrative/Plan: Received Fleet Enema November 2009 with mild response, he has also been on twice a day Colace and Maalox. MiraLAX was initiated for total of 3 days yesterday. We will add lactulose 1 this morning and order abdominal x-ray for this afternoon. Prior xray image from 12/07 reviewed by me shows moderate fecal retention. Status: Acute (2) Rapidly progressive dementia Narrative/Plan: Probable Lewy body dementia from parkinsons disease. Sinement and exelon per neurology - EEG with diffuse slowing - VDRL negative - B 12, TSH, Ammonia, HIV, and UA are within normal - MRI/MRA is normal Status: Acute (3) Seizure disorder Narrative/Plan: Continue lamicatal, neurology recs Status: Chronic (4) Alcohol use Narrative/Plan: cessation recommended, continue oral thiamine Status: Acute (5) Orthostatic hypotension Narrative/Plan: Persistently positive orthostatic hypotension as evidenced by vital signs checked on 12/06/2016. This could be secondary to autonomic dysfunction from Parkinson's disease or Sinemet. Would consider slow transition from sitting to standing/ Physical therapy. Status: Acute Plan: We will plan to recheck tomorrow or friday and will follow x-ray results this afternoon.
[2016-12-09] MEDS: ASPIRIN 325 MG TAB PO SCH (08:29)
[2016-12-09] MEDS: LORazepam 1 MG TAB PO PRN ×4 (08:29→21:20)
[2016-12-09] MEDS: CARBIDOPA-LEVODOPA 25-100 MG 1 EACH TAB PO SCH ×3 (08:29→22:46)
[2016-12-09] MEDS: DOCUSATE 100 MG CAP PO SCH ×2 (08:29→20:49)
[2016-12-09] MEDS: POLYETHYLENE GLYCOL 3350 17 GM POWD.PACK PO SCH (08:29)
[2016-12-09] MEDS: ATORVASTATIN 80 MG TAB PO SCH (08:29)
[2016-12-09] MEDS: NICOTINE 14MG/24HR PATCH TRANSDERM SCH (08:29)
[2016-12-09] MEDS: lamoTRIgine 100 MG TAB PO SCH ×2 (08:29→20:49)
--- NOTE | 2016-12-09 11:56 | XR ---
Abdomen HISTORY: Constipation Frontal view of the abdomen on 2 images correlated to prior abdomen 12/07/2016 There are surgical clips in the right hemipelvis region. There is no evident obstruction or pneumoper itoneum. Some retained fecal debris present distally within the colon but improved as compared to katlyn or exam. Lung bases are clear. IMPRESSION: Findings suggest some improvement as compared to prior exam.
[2016-12-09 12:34] LABS: Anion Gap 9 mmol/L; Blood Urea Nitrogen 21 mg/dL (9-20); Calcium 9.4 mg/dL (8.4-10.2); Carbon Dioxide 27 mmol/L (22-30); Chloride 101 mmol/L (98-107); Glucose 87 mg/dL (74-99); Non-African American GFR(MDRD) >60 (>60 ml/min/1.73 sqM); Potassium 4.2 mmol/L (3.5-5.1); Sodium 137 mmol/L (137-145)
[2016-12-09] MEDS: THIAMINE 100 MG TAB PO SCH (13:04)
[2016-12-09] MEDS: MULTIVITAMINS, THERA 1 EACH TAB PO SCH (13:04)
--- NOTE | 2016-12-09 15:33 | P.PN ---
Progress Note - Text Interval History: Patient is a 65-year-old male who was seen today on several occasions. Patient this morning was quite agitated requiring when necessary Ativan on 3 occasions one of which was IM. Patient required 3 doses of by mouth Ativan yesterday due to agitation. Patient was more alert at lunchtime, needed assistance and feeding himself, was able to shower with assistance and was taking off short walk in the hallway. Patient becomes easily irritable with multiple questions. He was able to respond that his stomach no longer hurt , but when asked if he had eaten lunch he asked where lunch was, the tray was sitting in front of him. Patient sleeps on and off during the day and is somewhat unsteady on his feet Mental Status: .Appearance/Attitude: Patient is dressed in a hospital gown, when speaking to him he makes intermittent eye contact, with multiple questions patient can become irritable. Behavior: Patient has episodes of agitation and at other times is calm, Speech/Language: Patient responded to questions in brief sentences, he speaks in a normal tone and volume. Thought Process: Patient at times is goal-directed in his response at other times his responses are not relevant to the question. Thought Content: Patient at times appears to be having visual hallucinations, he remains slightly guarded and suspicious of activity or noises on the unit. When he heard a phone ringing he picked up a cookie and held it to his head as though it was a telephone customer complaint service supervisor. Suicidal/Homicidal Ideation: Patient is not verbalizing any suicidal thoughts however patient can become easily agitated Sensorium/Cognition: Patient is alert at times at other times he is sleeping, he is oriented to person and location further testing was not performed this patient's responses were not relevant to the questions and he is easily irritated and frustrated with questions he cannot answer or understand. Mood/Affect: Patient's mood remains labile with episodes of agitation and other periods where he is calm and cooperative, his affect remains blunted Insight/Judgement: Since insight and judgment are impaired. Assessment: Patient has had an EEG which revealed generalized slowing, he has been on Sinemet now increased to 3 times a day and Exelon patch was begun on Friday, patient continues to have episodes of agitation requiring as needed Ativan and there seems to be no improvement in these episodes of agitation. He required 3 doses of Ativan on Friday and has required 3 doses today. Patient remains confused, needing assistance with most ADLs, he has been eating and drinking and a repeat abdominal x-ray showed improvement from a prior one. He has moved his bowels today. Plan: Patient has shown continued episodes of agitation and these require as needed doses of Ativan, these episodes continue to occur and the patient remains suspicious and paranoid at times, confused and his responses to questions at times are irrelevant. Patient with repeated questioning becomes easily irritated. Patient is currently on Sinemet now 3 times a day and Exelon patch for 3 days with little change in his level of agitation. As the patient remains agitated and at times suspicious and paranoid will begin a low dose of Seroquel 25 mg at bedtime to try to decrease his agitation and the need for repeated when necessary doses of Ativan. Patient's possible diagnosis of Lewy body dementia or Parkinson's dementia make the use of antipsychotic medication problematic but will attempt to use a low- dose of Seroquel to control his agitation. Patient will require placement upon discharge due to his inability to care for his activities of daily living.
[2016-12-09] MEDS: QUEtiapine 25 MG TAB PO SCH (20:49)
[2016-12-09] MEDS: RIVASTIGMINE 4.6MG/24HR PATCH TRANSDERM SCH (20:49)
[2016-12-09] MEDS: ACETAMINOPHEN TAB 325 MG TAB PO PRN (20:50)
[2016-12-10] MEDS: POLYETHYLENE GLYCOL 3350 17 GM POWD.PACK PO SCH (10:20)
[2016-12-10] MEDS: ASPIRIN 325 MG TAB PO SCH ×2 (10:21→12:51)
[2016-12-10] MEDS: ATORVASTATIN 80 MG TAB PO SCH ×2 (10:21→12:51)
[2016-12-10] MEDS: MULTIVITAMINS, THERA 1 EACH TAB PO SCH ×2 (10:21→12:51)
[2016-12-10] MEDS: lamoTRIgine 100 MG TAB PO SCH ×3 (10:21→20:29)
[2016-12-10] MEDS: DOCUSATE 100 MG CAP PO SCH ×3 (10:21→20:29)
[2016-12-10] MEDS: NICOTINE 14MG/24HR PATCH TRANSDERM SCH (10:21)
[2016-12-10] MEDS: LORazepam 1 MG TAB PO PRN ×4 (10:21→20:30)
[2016-12-10] MEDS: THIAMINE 100 MG TAB PO SCH ×2 (10:22→12:52)
[2016-12-10] MEDS: CARBIDOPA-LEVODOPA 25-100 MG 1 EACH TAB PO SCH ×4 (10:22→21:46)
--- NOTE | 2016-12-10 12:07 | P.PN ---
Progress Note - Text Interval History: Patient is a 65-year-old male, patient has been receiving Sinemet, Exelon and Ativan 1 mg every 6 hours over the last 4 days with improvement in his level of agitation and his gait. Patient has been ambulating in the [place] with assistance, he continues to have disruptive sleep, periods of lucidity but remains confused. Patient continues to have visual hallucinations. Patient has been eating with assistance, reminded to drink fluids and remains on a one-to-one for safety. Mental Status: Patient was seen in his room, patient was sleeping most of the morning, did not eat breakfast and was refusing his medications. Patient was complaining of hip pain and has a large bruise on his right hip from a fall earlier in his stay. Patient responds to his name, at one point was stuttering slightly when he spoke, would make random statements about, is someone playing hockey", when I responded to his statement he said that he didn't have to cut off my fingers. Patient is not as agitated as he has been in the past however he is not redirectable this morning to sit up or take his medications. Patient is alert lying in bed and periodically flexing his legs, at times clenching his hands. Patient is alert and responds to his name. ] Assessment: Patient has had a workup that has revealed normal B12 and folate levels, TSH levels within normal limits, his serology has a negative for syphilis and HIV and his MRI was within normal limits showing no evidence of atrophy. Consulting neurologist has declined a lumbar tap she did not feel it was an infectious process. Patient's EEG revealed a mildly abnormal in a diffuse fashion due to slight slowing of the EEG background, no seizure, focal or lateralizing abnormalities noted . Patient has presented with a history of shuffling gait per his , disrupted sleep with episodes of yelling and he has shown the same sleep abnormalities here with thrashing and yelling. Patient has also reported visual hallucinations prior to admission, seeing trees move and here reporting a cat in his room, a bomb and other visual hallucinations. Patient has periods where he is more alert, his focus is improved and he is able to respond to redirection, these alternate with periods of increased confusion and agitation. Patient has had orthostatic hypotension documented during his stay here as well as several falls here. Patient has required treatment for constipation. He also sleeps for long periods during the day. He also reported to his outpatient neurologist, stuttering, visual disturbances and problems with his memory, his also reported difficulty solving problems. He was also reporting symptoms of anxiety and depression as an outpatient to his neurologist and had been placed on Prozac. Patient also had episodes of irritability and agitation at home. A diagnosis of probable Lewy body dementia can be made on his above presentation , as he has core symptoms, supporting symptoms. Plan: Patient will continue on Sinemet, Exelon and he was started on seroquel 25mg qhs to see if the visual hallucinations could be reduced, patient has been receiving ativan 1mg po q6 hrs without any episodes of agitation, he remains irritable at times, especially when his statements are questioned, or he is repeatedly questioned. Patient continues to require assistance with all ADLs, remains on 1 to 1 precautions for safety. His gait was more stable yesterday when walking. Patient was discussed in team treatment meeting and placement in a jail is discharge plan. Will continue on current medications and evaluate his response to addition of low dose Seroquel. I attempted to call his but no answer and will try to contact her again. ]
--- NOTE | 2016-12-10 14:04 | P.PN ---
Subjective Principal diagnosis: Constipation Patient is a 65-year-old male with a past medical history of seizure disorder, alcohol abuse, and depression who initially presented with behavioral changes. We have been asked to review the case due to rapidly progressive dementia, behavioral disturbances, and recurrent falls. He was seen by neurology who felt that this is likely Parkinson's related. He is currently receiving an Exelon patch and Sinemet. Developed constipation but has had a large bowel movement with bowel regiment. Patient seen and examined at bedside. He denies any nausea, vomiting, abdominal pain. He was unsure if he had a bowel movement. Denies any chest pain or shortness of breath. He is able to tell me that he is [facility], he believes the year is 1974. 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 Objective - Vital Signs Vital signs: Vital Signs Temp 97.9 F 12/10/16 06:49 Pulse 85 12/10/16 06:49 Resp 12 12/10/16 06:49 BP 138/86 12/10/16 06:49 Pulse Ox 96 12/03/16 18:45 Intake & Output 12/09/16 12/10/16 12/10/16 18:59 06:59 18:59 Intake Total 600 Balance 600 Intake: Oral 600 - Exam General: non toxic, no distress, appears at stated age, disheveled Derm: no rashes, no lesions Head: atraumatic, normocephalic, symmetric Eyes: EOMI, no lid lag, anicteric sclera ENT: no post nasal drip, no thrush Mouth: no lip lesion, mucus membranes moist Cardiovascular: S1S2 reg, no murmur, positive posterior tibial pulse bilateral, Lungs: CTA bilateral, no rhonchi, no rales , no accessory muscle use Abdominal: + BS, soft, nontender to palpation, no guarding, no appreciable organomegaly Ext: no gross muscle atrophy, no edema, no contractures Neuro: CN II-XI grossly intact, no focal neuro deficits Psych: Alert, oriented to self and time, anxious, difficulty with comprehension - Labs CBC & Chem 7: 12/03/16 20:24 12/09/16 11:45 Assessment and Plan (1) Constipation Narrative/Plan: Resolved, continue miralax for another 2 days. Status: Acute (2) Rapidly progressive dementia Narrative/Plan: Probable Lewy body dementia from parkinsons disease. Sinement and exelon per neurology - EEG with diffuse slowing - VDRL negative - B 12, TSH, Ammonia, HIV, and UA are within normal - MRI/MRA is normal Status: Acute (3) Seizure disorder Narrative/Plan: Continue lamicatal, neurology recs Status: Chronic (4) Alcohol use Narrative/Plan: cessation recommended, continue oral thiamine Status: Acute (5) Orthostatic hypotension Narrative/Plan: Persistently positive orthostatic hypotension as evidenced by vital signs checked on 12/06/2016. This could be secondary to autonomic dysfunction from Parkinson's disease or Sinemet. Would consider slow transition from sitting to standing/ Physical therapy. Status: Acute Plan: Thank you for allowing us to participate in the care of this patient. We will follow peripherally. Do not hesitate to contact us with questions. Someone can be reached from the [facility] hospitalist group at all hours of the day at [phone].
[2016-12-10] MEDS: RIVASTIGMINE 4.6MG/24HR PATCH TRANSDERM SCH (20:29)
[2016-12-10] MEDS: QUEtiapine 25 MG TAB PO SCH (20:29)
[2016-12-11] MEDS: NICOTINE 14MG/24HR PATCH TRANSDERM SCH (08:21)
[2016-12-11] MEDS: POLYETHYLENE GLYCOL 3350 17 GM POWD.PACK PO SCH (08:21)
[2016-12-11] MEDS: LORazepam 1 MG TAB PO PRN ×4 (08:21→19:59)
[2016-12-11] MEDS: lamoTRIgine 100 MG TAB PO SCH ×2 (08:21→21:34)
[2016-12-11] MEDS: CARBIDOPA-LEVODOPA 25-100 MG 1 EACH TAB PO SCH ×3 (08:21→21:34)
[2016-12-11] MEDS: ASPIRIN 325 MG TAB PO SCH (08:21)
[2016-12-11] MEDS: DOCUSATE 100 MG CAP PO SCH ×2 (08:21→21:34)
[2016-12-11] MEDS: ATORVASTATIN 80 MG TAB PO SCH (08:21)
[2016-12-11] MEDS: ACETAMINOPHEN TAB 325 MG TAB PO PRN ×2 (08:24→12:38)
--- NOTE | 2016-12-11 09:59 | XR ---
Right hip HISTORY: Pain and bruising 2 views of the right hip correlated to previous exam 12/03/2016 There is no significant interval change. Surgical clips present in the right hemipelvis. Bone mineral ization, joint spaces and alignment are stable. Minimal marginal spurring present. IMPRESSION: Suspect some osteoarthritic change, correlate to exclude femoral acetabular impingement.
[2016-12-11] MEDS: THIAMINE 100 MG TAB PO SCH (12:37)
[2016-12-11] MEDS: MULTIVITAMINS, THERA 1 EACH TAB PO SCH (12:37)
--- NOTE | 2016-12-11 13:43 | XR ---
EXAMINATION TYPE: XR knee complete RT DATE OF EXAM: 12/11/2016 COMPARISON: NONE HISTORY: Pain TECHNIQUE: Four views are submitted. FINDINGS: Hypertrophic change with spur formation along the upper margin of the patella. Mild narrowing the dominic nt spaces without evidence of erosive change.. Osseous structures are intact. No acute fracture see n. IMPRESSION: 1. Mild hypertrophic and arthritic changes as discussed above with no evidence of acute fracture. If symptoms persist consider MRI.
--- NOTE | 2016-12-11 16:11 | P.PN ---
Subjective Principal diagnosis: Fall Patient is a 65-year-old male with a past medical history of seizure disorder, alcohol abuse, and depression who initially presented with behavioral changes. We have been asked to review the case due to rapidly progressive dementia, behavioral disturbances, and recurrent falls. He was seen by neurology who felt that this is likely Parkinson's related. He is currently receiving an Exelon patch and Sinemet. Developed constipation but has had a large bowel movement with bowel regiment. Patient slid out of bed onto the floor on 12/11. Patient seen and examined at bedside. Patient initially denies any right hip pain however he is guarding his right hip. He does complain of right knee pain. He denies any nausea vomiting and abdominal pain. His mental status is unchanged from baseline. Staff report that he slid to the floor today, he did not have any gross injury, x-ray of the hip was negative for any fracture or malalignment. Objective - Vital Signs Vital signs: Vital Signs Temp 98.0 F 12/11/16 10:00 Pulse 77 12/11/16 10:00 Resp 18 12/11/16 10:00 BP 131/68 12/11/16 10:00 Pulse Ox 96 12/03/16 18:45 Intake & Output 12/10/16 12/11/16 12/11/16 18:59 06:59 18:59 Intake Total 413 Balance 413 Intake: Oral 413 - Exam General: non toxic, no distress, appears at stated age, disheveled Derm: Ecchymosis posterior right hip without bony abnormality or swelling, small ecchymosis right knee Head: atraumatic, normocephalic, symmetric Eyes: EOMI, no lid lag, anicteric sclera, pupils equal round reactive to light ENT: no post nasal drip, no thrush Mouth: no lip lesion, mucus membranes moist Cardiovascular: S1S2 reg, no murmur, positive posterior tibial pulse bilateral, Lungs: CTA bilateral, no rhonchi, no rales , no accessory muscle use Abdominal: + BS, soft, nontender to palpation, no guarding, no appreciable organomegaly Ext: no gross muscle atrophy, no edema, no contractures, no pain to palpation over right hip, no pain to palpation over right knee, into varus and valgus stress of the right knee, patient unable to follow commands for hip testing. Neuro: CN II-XI grossly intact, no focal neuro deficits Psych: Alert, oriented to self and time, anxious, difficulty with comprehension - Labs CBC & Chem 7: 12/03/16 20:24 12/09/16 11:45 Assessment and Plan (1) Superficial bruising of hip Narrative/Plan: X-ray of the hip is negative, x-ray of the right knee was ordered and is negative, ibuprofen around the clock for 3 days for pain, he also has as needed Tylenol for pain. Status: Acute (2) Constipation Narrative/Plan: Resolved, continue miralax for another 1 days. Then continue with Colace. Status: Acute (3) Rapidly progressive dementia Narrative/Plan: Probable Lewy body dementia from parkinsons disease. Sinement and exelon per neurology - EEG with diffuse slowing - VDRL negative - B 12, TSH, Ammonia, HIV, and UA are within normal - MRI/MRA is normal Status: Acute (4) Seizure disorder Narrative/Plan: Continue lamicatal, neurology recs Status: Chronic (5) Alcohol use Narrative/Plan: cessation recommended, continue oral thiamine Status: Acute (6) Orthostatic hypotension Narrative/Plan: Persistently positive orthostatic hypotension as evidenced by vital signs checked on 12/06/2016. This could be secondary to autonomic dysfunction from Parkinson's disease or Sinemet. Would consider slow transition from sitting to standing/ Physical therapy. Status: Acute Plan: Thank you for allowing us to participate in the care of this patient. We will follow peripherally. Do not hesitate to contact us with questions. Someone can be reached from the [facility] hospitalist group at all hours of the day at [phone].
[2016-12-11] MEDS: IBUPROFEN 400 MG TAB PO SCH ×2 (16:17→21:34)
--- NOTE | 2016-12-11 16:44 | P.PN ---
Progress Note - Text Interval History: Patient is a 65-year-old male who was seen this morning, patient is complaining of right hip pain as well as he slid to the floor this morning and hit his knee, x-rays were obtained of both his hip and his knee which were negative. Patient's hematoma over his right hip area is resolving, as I reviewed his hematoma yesterday and compared it with today. Patient continues to have episodes of irritability, but has been redirectable and there have been no further episodes of assaultive or aggressive behavior. Patient has been in his room most of today, he was ambulating and out on the unit yesterday. Patient continues to have periods where he is sleeping, when he is awake he remains confused, and his conversation is coherent but not relevant. Patient continues on a one-to-one observation and continues to require assistance with his ADLs. Mental Status: Patient is dressed in a hospital gown and is seen in his room where he is lying in bed, at times he is up in a recliner. Patient when he is in bed will occasionally pull his legs towards his chest with his arms, patient was alert, responded to his name. Patient was asked if he was hungry he stated that he did not feel hungry for breakfast, when asked about the pain in his right hip his response was not relevant to the question. Patient then stated that there was money underneath his sheet. Patient is able to follow directions at times and is redirectable by staff when becoming irritated. Patient has not exhibited any self injurious behavior. Patient has been eating with assistance from staff and has been drinking fluids. Patient continues to need assistance with ambulation. Assessment: Patient has had no episodes of assaultive or agitated behavior for one week, patient has been on Ativan 1 mg every 6 hours when necessary with control of his agitation and the patient is not overly sedated. Patient has also been on Exelon and Sinemet. Patient has been redirectable by staff, when becoming irritable he was redirected and he has been eating with assistance and has been drinking fluids. Patient continues to require assistance when ambulating due to his unsteady gait. Plan: Patient on the current medication has not had any further episodes of assaultive behavior, he remains irritable at times but is redirectable and continues to require assistance with all of his ADLs and assistance with his ambulation. Patient fell on his knee today and x-rays were done to his knee as well as his right hip due to his complaints of pain both were negative. Patient will continue on his current medications as he has been less agitated and more redirectable. Continue to look for placement for this gentleman as he is not appropriate to return home and requires 24-hour care. Physical therapy is been asked to evaluate the patient for recommendations regarding his gait.
[2016-12-11] MEDS: QUEtiapine 25 MG TAB PO SCH (21:34)
[2016-12-11] MEDS: RIVASTIGMINE 4.6MG/24HR PATCH TRANSDERM SCH (21:34)
[2016-12-11] MEDS ORDERED: LORazepam 1 MG TAB PO STA (22:04)
[2016-12-12] MEDS: LORazepam 1 MG TAB PO PRN (05:07)
[2016-12-12] MEDS ORDERED: LORazepam 2 MG/ML SYRINGE IM PRN (08:03)
[2016-12-12] MEDS ORDERED: QUEtiapine 25 MG TAB PO SCH (09:00)
[2016-12-12] MEDS: ASPIRIN 325 MG TAB PO SCH (09:59)
[2016-12-12] MEDS: ATORVASTATIN 80 MG TAB PO SCH (10:06)
[2016-12-12] MEDS: CARBIDOPA-LEVODOPA 25-100 MG 1 EACH TAB PO SCH ×3 (10:07→20:25)
[2016-12-12] MEDS: DOCUSATE 100 MG CAP PO SCH ×2 (10:07→20:26)
[2016-12-12] MEDS: IBUPROFEN 400 MG TAB PO SCH ×3 (10:08→20:26)
[2016-12-12] MEDS: POLYETHYLENE GLYCOL 3350 17 GM POWD.PACK PO SCH (10:10)
[2016-12-12] MEDS: lamoTRIgine 100 MG TAB PO SCH ×2 (10:11→20:25)
[2016-12-12 11:08] VITALS: BMI 21.4
[2016-12-12 14:47] LABS: Basophils % (A) 1 %; CH 34.2; CHCM 35.8; Eosinophils # (A) 0.1 k/uL (0-0.7); Eosinophils % (A) 1 %; HCT 45.5 % (39.0-53.0); HDW 2.58; HGB 15.1 gm/dL (13.0-17.5); Luc # (Auto) 0.06; Luc % (Auto) 1; Lymphocytes # (A) 0.9 k/uL (1.0-4.8); Lymphocytes % (A) 14 %; MCH 31.9 pg (25.0-35.0); MCHC 33.2 g/dL (31.0-37.0); MCV 95.9 fL (80.0-100.0); Mean Platelet Volume 6.9; Monocytes # (A) 0.3 k/uL (0-1.0); Monocytes % (A) 5 %; Neutrophils # (A) 5.1 k/uL (1.3-7.7); Neutrophils % (A) 78 %; RBC 4.75 m/uL (4.30-5.90); RDW 12.5 % (11.5-15.5); WBC 6.5 k/uL (3.8-10.6)
--- NOTE | 2016-12-12 15:23 | P.PN ---
Progress Note - Text Interval History: Patient is a 65-year-old male, he was seen in his room this afternoon and has been up in a wheelchair as well as walking in the hallways. Patient was lying in bed when I approached but was awake and alert. Patient did not verbalize any complaints of pain in his hip when I asked however the patient was pointing to his left hip and it is his right hip that has a large hematoma. Patient was able to state that he did eat lunch, that he was walking in the hallways and he did not make any reference to any visual hallucinations at this time. Patient reported that he was doing well when asked how he felt. Mental Status: Appearance/Attitude: Patient is lying in bed in a hospital gown, he was cooperative. Behavior: Patient did not display any psychomotor agitation or retardation on my exam. Speech/Language: Patient responded to questions with short sentences or yes no answers, he was coherent Thought Process: Patient's responses were relevant to the questions Thought Content: Patient did not appear to be responding to any auditory hallucinations and there is no evidence that he was responding to visual hallucinations. Suicidal/Homicidal Ideation: Patient did not express any suicidal or homicidal ideation, when asked he stated no Sensorium/Cognition: Patient is alert, oriented to person and location Mood/Affect: Patient's mood was less irritable and his affect remains flat Insight/Judgement: Patient's insight and judgment are poor Assessment: Patient had an episode of agitation last night, requiring a stat dose of Ativan by mouth. Patient continues to have periods of sedation and agitation. He is sleeping more during the day than he is at night. Patient continues to have some pain in his right hip, today when walking with one of the aides he had a slight limp near the end of their walk, however the patient did not verbalize any pain in his hip when asked today. Patient also asked to go for a walk today.Patient has not received any Ativan since 5 AM this morning and appears more alert and awake this afternoon. Plan: to decrease the amount of sedation the patient is experiencing will decrease the Ativan to 0.5 mg 4 times a day when necessary for agitation either IM or by mouth and discussed using this only if the patient is agitated to try to decrease the amount of sedation. I also added melatonin 5 mg at bedtime to try to improve his sleep, suggested that we keep the drapes in his room open during the day to try to correct his day night cycle. I increased the Seroquel to 25 mg twice a day to see if we could decrease his periods of visual hallucinations and decrease his agitation. Patient continues on Exelon and Sinemet and could consider increasing the dose of the Exelon at the beginning of next week. CBC was ordered today to rule out an infection and it was within normal limits as was his lactic acid. Patient has not eaten breakfast today but did eat lunch today.
[2016-12-12] MEDS: MULTIVITAMINS, THERA 1 EACH TAB PO SCH (17:03)
[2016-12-12] MEDS: THIAMINE 100 MG TAB PO SCH (17:04)
[2016-12-12] MEDS: QUEtiapine 25 MG TAB PO SCH ×2 (17:13→20:26)
[2016-12-12] MEDS: LORazepam 0.5 MG TAB PO PRN (18:20)
[2016-12-12] MEDS: MELATONIN 5 MG TABLET PO SCH (20:25)
[2016-12-12] MEDS: RIVASTIGMINE 4.6MG/24HR PATCH TRANSDERM SCH (20:25)
[2016-12-13] MEDS: LORazepam 0.5 MG TAB PO PRN ×2 (05:44→11:06)
[2016-12-13] MEDS: IBUPROFEN 400 MG TAB PO SCH ×3 (05:44→20:48)
[2016-12-13] MEDS: ACETAMINOPHEN TAB 325 MG TAB PO PRN ×2 (07:05→14:05)
[2016-12-13] MEDS: QUEtiapine 25 MG TAB PO SCH ×3 (08:00→20:47)
[2016-12-13] MEDS: ATORVASTATIN 80 MG TAB PO SCH (08:00)
[2016-12-13] MEDS: lamoTRIgine 100 MG TAB PO SCH ×2 (08:00→20:48)
[2016-12-13] MEDS: CARBIDOPA-LEVODOPA 25-100 MG 1 EACH TAB PO SCH ×5 (08:00→20:50)
[2016-12-13] MEDS: POLYETHYLENE GLYCOL 3350 17 GM POWD.PACK PO SCH (08:01)
[2016-12-13] MEDS: DOCUSATE 100 MG CAP PO SCH ×2 (08:01→20:47)
[2016-12-13] MEDS: ASPIRIN 325 MG TAB PO SCH (08:01)
[2016-12-13] MEDS: MULTIVITAMINS, THERA 1 EACH TAB PO SCH (11:06)
[2016-12-13] MEDS: THIAMINE 100 MG TAB PO SCH (11:06)
--- NOTE | 2016-12-13 18:06 | P.PN ---
Progress Note - Text Interval History: Patient is a 65-year-old male and when I saw him this morning he was more alert, he was eating with assistance and was walking on the unit with assistance. However the patient apparently was irritable and agitated last evening and did receive Ativan this morning and then again later in the early afternoon. Patient did sleep well last night per the reports of staff. Patient was responding appropriately to some questions today but at other times appears to be responding to visual hallucinations and is easily agitated and irritable. Mental Status: Patient at times is alert at other times he is sitting with his eyes shut or sleeping during the day. Patient was responding to some questions today appropriately and at other times appears to be responding to visual hallucinations, where he will point and yell at people who were not there. Patient at other times will sit with his eyes shut and at times has his hands tightly clenched. Patient was walking in the hallways today with assistance and continues to have a slight shuffling to his gait. Patient apparently slept last evening and has been eating well with assistance. Assessment: Patient continues to have ups and downs in his level of alertness, with periods where he is more confused and agitated and other periods where he is more alert and responding to some questions quite appropriately. Patient has periods of agitation, and at times appears to be responding to visual hallucinations. Plan: Patient was placed on Seroquel every 8 hours at 25 mg to see if this would even out the response to it as he appeared to have a good response yesterday to the medication but as it wore off early this morning became increasingly agitated. Patient has received Ativan twice today due to agitation. Patient's other medications remain unchanged at this time. Patient continues to need assistance with ADLs and his gait remains unsteady.
[2016-12-13] MEDS: RIVASTIGMINE 4.6MG/24HR PATCH TRANSDERM SCH (20:08)
[2016-12-13] MEDS: MELATONIN 5 MG TABLET PO SCH (20:46)
[2016-12-14] MEDS: QUEtiapine 25 MG TAB PO SCH ×3 (05:42→22:11)
[2016-12-14] MEDS: lamoTRIgine 100 MG TAB PO SCH ×2 (09:13→20:15)
[2016-12-14] MEDS: DOCUSATE 100 MG CAP PO SCH ×2 (09:14→20:15)
[2016-12-14] MEDS: ASPIRIN 325 MG TAB PO SCH (09:14)
[2016-12-14] MEDS: CARBIDOPA-LEVODOPA 25-100 MG 1 EACH TAB PO SCH ×3 (09:14→22:11)
[2016-12-14] MEDS: IBUPROFEN 400 MG TAB PO SCH ×2 (09:14→16:54)
[2016-12-14] MEDS: ATORVASTATIN 80 MG TAB PO SCH (09:55)
[2016-12-14] MEDS: MULTIVITAMINS, THERA 1 EACH TAB PO SCH (11:41)
[2016-12-14] MEDS: THIAMINE 100 MG TAB PO SCH (11:41)
[2016-12-14] MEDS: ACETAMINOPHEN TAB 325 MG TAB PO PRN ×2 (13:52→22:12)
--- NOTE | 2016-12-14 17:17 | P.PN ---
Progress Note - Text Date of service: 12/14/2016 Chief complaint: "I feel better today " Subjective: The patient has been seen today as follow-up, chart reviewed, case discussed with the treatment team. Patient slept about 5 hours last night. Patient has been not going to groups and other unit activities. Patient reports better appetite problems. The patient has been seen in his bed with the one-on-one. According to nursing staff patient has placed on one-on-one for safety and he due to inability to take care of himself with frequent falls during his hospitalization. The patient presented today call, cooperative, and engaged. He reports feel and minimize depression or anxiety. He denies feeling hopeless and he denies suicidal thoughts. He reports no auditory hallucinations and he denies any paranoid feeling. The patient denies any manic symptoms. He claimed he could walk and he think that he could walk with no assistance but I encouraged him to use assistance of a walker when he tried to walk by himself. Review of other systems: Patient denies any physical symptoms besides what has been mentioned above. No breathing problems, no chest pain reported today. Objective: Vitals has been reviewed. Mental status examination: Appearance: The patient appears older than stated age, laying in bed. no specific features. Gait/posture:No abnormal movements noticed but patient was just laying in bed Attitude and behavior: engaged, cooperative, fair eye contact. Motor activity: normal psychomotor activity Speech:low volume, normal tone Mood: not depressed , less anxious Affect:constricted Thought form: goal-directed, linear, coherent. Thought content: Non-delusional, denies suicidal thoughts, denies homicidal thoughts, denies intentions or plans. Perception: Denies any auditory or visual hallucinations Attention: No impairment. Insight: Patient has limited insight about his psychiatric disorder. Judgment: Patient has limited judgment about his psychiatric treatment. Assessment: Unspecified psychosis Seizure disorder Plan: Continue with inpatient psychiatric hospitalization for monitoring and continue treatment. Continue group therapy and other unit activities. Continue follow up with medical and neurology teams to address physical problems including seizure disorder Continue psychiatric medications: Seroquel 25mg TID as mood stabilizer Continue follow up
[2016-12-14] MEDS: MELATONIN 5 MG TABLET PO SCH (20:15)
[2016-12-14] MEDS: RIVASTIGMINE 4.6MG/24HR PATCH TRANSDERM SCH (20:15)
[2016-12-14] MEDS: LORazepam 0.5 MG TAB PO PRN (20:18)
[2016-12-15] MEDS: CARBIDOPA-LEVODOPA 25-100 MG 1 EACH TAB PO SCH ×3 (09:15→21:04)
[2016-12-15] MEDS: QUEtiapine 25 MG TAB PO SCH ×3 (09:15→21:04)
[2016-12-15] MEDS: lamoTRIgine 100 MG TAB PO SCH ×2 (09:15→21:04)
[2016-12-15] MEDS: ATORVASTATIN 80 MG TAB PO SCH (09:16)
[2016-12-15] MEDS: ASPIRIN 325 MG TAB PO SCH (09:16)
[2016-12-15] MEDS: DOCUSATE 100 MG CAP PO SCH ×2 (09:16→21:04)
[2016-12-15] MEDS: ACETAMINOPHEN TAB 325 MG TAB PO PRN (09:17)
[2016-12-15] MEDS: THIAMINE 100 MG TAB PO SCH (12:47)
[2016-12-15] MEDS: MULTIVITAMINS, THERA 1 EACH TAB PO SCH (12:47)
--- NOTE | 2016-12-15 13:30 | P.PN ---
Progress Note - Text Date of service: 12/15/2016 Chief complaint: "I am fine " Subjective: The patient has been seen today as follow-up, chart reviewed, case discussed with the treatment team. Patient slept about 3 hours last night. Patient has been not going to groups and other unit activities. Patient reports fair appetite problems. The patient presented the same and he was seen in his bed. The patient continued to be confused not oriented. He denies feeling depressed or suicidal and he denies hearing voices or any other hallucinations. The patient denies feeling irritable or agitated but according to the nursing staff he has outburst of severe agitation. Patient was able to take a few steps with support of the staff and myself but he continued to have balance problems and wobbly gait. Review of other systems: Patient denies any physical symptoms besides what has been mentioned above. No breathing problems, no chest pain reported today. Objective: Vitals has been reviewed. Mental status examination: Appearance: The patient appears older than stated age, laying in bed. no specific features. Gait/posture: Unsteady gait, No abnormal movements noticed Attitude and behavior: engaged, cooperative, fair eye contact. Motor activity: normal psychomotor activity Speech:low volume, normal tone Mood: not depressed , anxious Affect:constricted Thought form: Confused and partially incoherent. Repeated words or same phrases. Thought content: Non-delusional, denies suicidal thoughts, denies homicidal thoughts, denies intentions or plans. Perception: Denies any auditory or visual hallucinations Attention: impairment. Orientation: The patient is not oriented to the time, place, or situation. Insight: Patient has poor insight about his psychiatric disorder. Judgment: Patient has poor judgment about his psychiatric treatment. Assessment: Unspecified psychosis Seizure disorder Plan: Continue with inpatient psychiatric hospitalization for monitoring and continue treatment. Continue group therapy and other unit activities. Continue follow up with medical and neurology teams to address physical problems including seizure disorder Continue psychiatric medications: Seroquel 25mg TID as mood stabilizer Provided patient with frequent orientation about time and place. Provide for her to assist patient walking. Continue follow up
[2016-12-15] MEDS: RIVASTIGMINE 4.6MG/24HR PATCH TRANSDERM SCH (19:47)
[2016-12-15] MEDS: MELATONIN 5 MG TABLET PO SCH (21:04)
[2016-12-16] MEDS: QUEtiapine 25 MG TAB PO SCH ×2 (05:46→13:18)
[2016-12-16] MEDS: DOCUSATE 100 MG CAP PO SCH (09:20)
[2016-12-16] MEDS: ATORVASTATIN 80 MG TAB PO SCH (09:21)
[2016-12-16] MEDS: lamoTRIgine 100 MG TAB PO SCH (09:21)
[2016-12-16] MEDS: CARBIDOPA-LEVODOPA 10-100 MG 1 EACH TAB PO SCH ×2 (09:21→16:11)
[2016-12-16] MEDS: ASPIRIN 325 MG TAB PO SCH (09:22)
[2016-12-16] MEDS: MULTIVITAMINS, THERA 1 EACH TAB PO SCH (09:23)
[2016-12-16] MEDS: THIAMINE 100 MG TAB PO SCH (09:24)
[2016-12-16 11:16] LABS: ALT 48 U/L (21-72); AST 33 U/L (17-59); Alkaline Phosphatase 89 U/L (38-126); Anion Gap 9 mmol/L; Blood Urea Nitrogen 22 mg/dL (9-20); Calcium 9.3 mg/dL (8.4-10.2); Carbon Dioxide 28 mmol/L (22-30); Chloride 105 mmol/L (98-107); Glucose 101 mg/dL (74-99); Non-African American GFR(MDRD) >60 (>60 ml/min/1.73 sqM); Sodium 142 mmol/L (137-145); Total Bilirubin 0.5 mg/dL (0.2-1.3); Total Protein 5.5 g/dL (6.3-8.2)
[2016-12-16 12:51] VITALS: BP 129/89; PULSE 86; RESP 16; TEMP 98.4
--- NOTE | 2016-12-16 17:19 | P.PN ---
Progress Note - Text Interval History: Patient is a 65-year-old male who was seen today, patient is now having jerking movements when he is awake as well as making vocalizations. Patient was more cooperative, at times more lucid and following redirection over the weekend. Patient while he is sleeping his not having any of the jerking movements or vocalizations as her only when the patient is awake. Patient was seen today and he was cooperative, could follow some simple commands but was responding in only brief sentences and at times not at all to questions. Mental Status: Patient is alert at times at other times he is sleeping during the day, while awake the patient is having jerking movements of his legs or arms as well as making vocalizations, this jerking movement has made it somewhat difficult for the patient to drink water or swallow effectively. Patient responds to some simple commands and did not respond to questions verbally today other than yes or no to some of them. Patient has been calm her and has not required any when necessary Ativan. Patient is not making any self- injurious behavior and has not been assaultive. Patient at times has been quite tearful and crying, today however he has not. Assessment: Patient appears to have been calm or over the weekend but is now developed dyskinesia most likely secondary to Sinemet. Patient continues to require assistance while eating which has become more problematic due to the dyskinesia and some difficulty swallowing. Patient has been more cooperative and redirectable. Patient continues to sleep for long periods during the day. Plan: I will continue the Seroquel 25 mg 3 times a day, melatonin 5 mg at bedtime and he will continue on his Lamictal to target his seizure disorder. I will decrease the Sinemet to 10-100 3 times a day and 48 hours will decrease it to twice a day as I believe the Sinemet is causing his dyskinesia. Patient will continue on the Exelon patch at this time and we'll reassess the benefit of this as well. A repeat comprehensive metabolic panel reveals an elevated BUN and a lower total protein the remainder of his results are not clinically significant. Swallow test was ordered to evaluate his ability to swallow. I spoke with the patient's this afternoon and discussed the side effect of the Sinemet and his dyskinesia and my tapering slowly of this and eventually discontinuing it. I discussed with her that the patient was calm or over the weekend and she had some concerns after seeing him this weekend when he became quite tearful when looking at a photo album. She remarked that he had one moment where he could tell his son where a cleaning agent was in the garage. I discussed my plan with her and that the patient would require 24-hour care once he is stabilized here. I reviewed the patient's medications with her and my plan to decrease and eventually discontinue his Sinemet in hopes of stopping the dyskinesias.
[2016-12-18 07:26] LABS: Glucose,Whole Blood 114 mg/dL (75-99)
== END 2016-12-16 17:56 | DRG 57 ==
LOC: EC 16:54 → 3MHU 22:11
PROVIDERS: ADMIT Psychiatry & Neurology Psychiatry; ATTEND Psychiatry & Neurology Psychiatry
DX: G31.83 Neurocognitive disorder with Lewy bodies (principal); G40.919 Epilepsy, unspecified, intractable, without status epilepticus; F02.81 Dementia in other diseases classified elsewhere, unspecified severity, with behavioral disturbance; I10 Essential (primary) hypertension; F10.10 Alcohol abuse, uncomplicated; I95.1 Orthostatic hypotension; K59.00 Constipation, unspecified; S70.01XA Contusion of right hip, initial encounter; R26.81 Unsteadiness on feet; F32.9 Major depressive disorder, single episode, unspecified; E78.5 Hyperlipidemia, unspecified; R29.6 Repeated falls; G89.29 Other chronic pain; F41.9 Anxiety disorder, unspecified; G24.01 Drug induced subacute dyskinesia; T42.8X5A Adverse effect of antiparkinsonism drugs and other central muscle-tone depressants, initial encounter; M54.9 Dorsalgia, unspecified; Z79.82 Long term (current) use of aspirin; Z79.899 Other long term (current) drug therapy; Y92.239 Unspecified place in hospital as the place of occurrence of the external cause; W19.XXXA Unspecified fall, initial encounter
CPT/HCPCS: 36415; 70030; 70450; 70544; 70549; 70553; 71020; 73502; 74000; 80048; 80053; 80175; 80306; 80320; 81003; 82075; 82140; 82550; 82553; 82607; 82746; 83605; 83735; 84100; 84443; 84484; 85025; 85027; 85610; 85652; 85730; 86140; 86780; 87390; 93005; 95816

== ENCOUNTER 2016-12-16 18:02 | Observation (INO) | payer MEDICARE ==
[2016-12-16] MEDS ORDERED: ONDANSETRON 4 MG/2 ML VIAL IVP PRN (18:28)
[2016-12-16] MEDS ORDERED: MELATONIN 3 MG TABLET PO PRN (18:28)
[2016-12-16] MEDS ORDERED: ACETAMINOPHEN TAB 325 MG TAB PO PRN (18:28)
[2016-12-16] MEDS ORDERED: NALOXONE 0.4 MG/ML 1 ML VIAL IV PRN (18:28)
[2016-12-16] MEDS ORDERED: LORazepam 2 MG/ML SYRINGE IM ONE (18:52)
[2016-12-16] MEDS: LORazepam 2 MG/ML SYRINGE IV PRN (18:57)
--- NOTE | 2016-12-16 18:57 | P.HPIM ---
History of Present Illness H&P Date: 12/16/16 Chief Complaint: seizure As a 65-year-old male with a history of depression, dyslipidemia, and hypertension who has been in the psychiatric unit since 11/29/2016 for agitation and altered mentation. He had been diagnosed with probable Lewy body dementia. He had been started on Sinemet and Exelon patch per neurology. During his stay he suffered with constipation which was resolved with MiraLAX. He also struggles with ataxia, and had one episode of sliding out of bed resulting in ecchymoses. He had developed excessive movement on his Sinemet and the dose had been decreased by psychiatry. Per verbal report from nursing he has not seizure where he became dizzy and unresponsive. This lasted less than 5 minutes. He had a significant postictal period of approximately 20 minutes. Patient seen and examined in the psychiatric unit and arrangements were made to transfer him to the medical floor. He was able to say "yes" for me but otherwise did not verbalize. He was able to intermittently follow commands. He was unable to answer review of systems. was notified by psychiatric team of admission to medical floor. Review of Systems ROS unobtainable: due to mental status Past Medical History Past Medical History: Dementia, Hyperlipidemia, Hypertension Additional Past Medical History / Comment(s): Constipation, alcohol abuse, static hypotension History of Any Multi-Drug Resistant Organisms: None Reported Past Surgical History: Hernia Repair Past Psychological History: Depression Smoking Status: Never smoker Past Alcohol Use History: Occasional Past Drug Use History: None Reported - Past Family History Mother Brother(s) Family Medical History: Dementia Medications and Allergies Home Medications Medication Instructions Recorded Confirmed Type Aspirin 325 mg PO DAILY 11/29/16 11/29/16 History Atorvastatin [Lipitor] 80 mg PO DAILY 11/29/16 11/29/16 History FLUoxetine HCL [PROzac] 40 mg PO BID 11/29/16 11/29/16 History Lysine [l-Lysine] 500 mg PO DAILY 11/29/16 11/29/16 History Multivitamins, Thera [Multivitamin 1 tab PO DAILY 11/29/16 11/29/16 History (formulary)] lamoTRIgine 200 mg PO BID 11/29/16 11/29/16 History Allergies Allergy/AdvReac Type Severity Reaction Status Date / Time No Known Allergies Allergy Verified 11/29/16 18:59 Physical Exam Osteopathic Statement: *. No significant issues noted on an osteopathic structural exam other than those noted in the History and Physical/Consult. Vitals: General: Ill-appearing, distress, appears at stated age, underweight Derm: Ecchymosis right thigh no lesions, no ulcers, no unusual ecchymoses Head: atraumatic, normocephalic, symmetric Eyes: EOMI, no lid lag, anicteric sclera, pupils equal round reactive to light ENT: no post nasal drip, nearest patent Neck: No thyromegaly, no cervical lymphadenopathy, trachea midline, supple Mouth: bite edson left lower lip, Mucus membranes dry Cardiovascular: S1S2 reg, no murmur, positive posterior tibial pulse bilateral, no edema , no JVD, no clubbing, no cyanosis, capillary refill less than 2 seconds Lungs: CTA bilateral, no rhonchi, no rales , no accessory muscle use Abdominal: soft, nontender to palpation, no guarding, no appreciable organomegaly, normal bowel sounds Ext: no gross muscle atrophy, unable to participate in formalized muscle strength testing, no contractures, Neuro: CN II-XI grossly intact, light touch intact all 4 extremities, unable to follow commands for [id number], has purposeful movement, no tremors, no cogwheel rigidity Psych: Awake, not verbalizing, appears anxious Thrombosis Risk Factor Assmnt - DVT/VTE Prophylaxis DVT/VTE Prophylaxis: Mechanical Prophylaxis ordered Assessment and Plan Plan: #Break through seizure with history of seizure disorder- Continue with Lamictal , check Lamictal level, seizure precautions, neurology evaluation, EEG, neuro checks every 22 then every 4, stat head CT, will provide DVT prophylaxis with SCDs until head CT is available, check stat CBC, CMP, Mg, UA and culture #Lewy body dementia with behavioral disturbance-continue with Sinemet as to avoid abrupt withdrawal, continue with Exelon patch, await neurology reevaluation, continue prn Ativan # Dehydration-normal saline at 75 mL/h, repeat blood work in a.m. #HTN, controlled - not currently on medications, follow BP # HLD- statin therapy Surrogate decision-maker: CODE STATUS:Full Code DVT prophylaxis: SCDs Discussed with: Patient, nursing, psychiatrist Anticipated discharge: unknown Anticipated discharge place: unknown A total of 45 minutes was spent on the care of this complex patient more than 50 % of the time was spent in counseling and care coordination.
[2016-12-16 19:48] LABS: Basophils % (A) 0 %; CH 34.2; CHCM 35.1; Eosinophils # (A) 0.1 k/uL (0-0.7); Eosinophils % (A) 1 %; HCT 43.9 % (39.0-53.0); HDW 2.59; HGB 14.7 gm/dL (13.0-17.5); Luc # (Auto) 0.07; Luc % (Auto) 1; Lymphocytes # (A) 0.5 k/uL (1.0-4.8); Lymphocytes % (A) 5 %; MCH 32.7 pg (25.0-35.0); MCHC 33.5 g/dL (31.0-37.0); MCV 97.9 fL (80.0-100.0); Mean Platelet Volume 6.9; Monocytes # (A) 0.3 k/uL (0-1.0); Monocytes % (A) 3 %; Neutrophils # (A) 8.9 k/uL (1.3-7.7); Neutrophils % (A) 90 %; RBC 4.48 m/uL (4.30-5.90); RDW 12.9 % (11.5-15.5); WBC 9.9 k/uL (3.8-10.6); WBC (Perox) 10.42
[2016-12-16 20:00] LABS: ALT 34 U/L (21-72); AST 34 U/L (17-59); Alkaline Phosphatase 101 U/L (38-126); Anion Gap 10 mmol/L; Blood Urea Nitrogen 24 mg/dL (9-20); Calcium 9.6 mg/dL (8.4-10.2); Carbon Dioxide 25 mmol/L (22-30); Chloride 106 mmol/L (98-107); Glucose 108 mg/dL (74-99); Magnesium 1.9 mg/dL (1.6-2.3); Non-African American GFR(MDRD) >60 (>60 ml/min/1.73 sqM); Potassium 4.6 mmol/L (3.5-5.1); Sodium 141 mmol/L (137-145); Total Bilirubin 0.6 mg/dL (0.2-1.3); Total Protein 5.9 g/dL (6.3-8.2)
[2016-12-16] MEDS: QUEtiapine 25 MG TAB PO SCH (21:26)
[2016-12-16] MEDS: MELATONIN 5 MG TABLET PO SCH (21:26)
[2016-12-16] MEDS: lamoTRIgine 100 MG TAB PO SCH (21:27)
[2016-12-16] MEDS: FAMOTIDINE 20 MG TAB PO SCH (21:27)
[2016-12-16] MEDS: RIVASTIGMINE 4.6MG/24HR PATCH TRANSDERM SCH (21:29)
--- NOTE | 2016-12-16 21:38 | P.MHFACE ---
Face to Face Eval of Restraint - Evaluation Patient's Immediate Situation: Endangers self safety, Endangers staff safety Patient's Immediate Situation - Comment: initial evaluation: 12/16/16 19:20 Patient was placed in restraints due to aggressive behavior. He was transferred from mental health unit after seizure. On the floor arrival to the floor he became agitated aggressive heating toward nursing staff and uncooperative. He was given Ativan by the provider placed in restraints and he has been calmer now. He denies any pain or discomfort he knows location but he is not aware of the time and date and to himself. Patient's Reaction to the Intervention: Appropriate, Calm, Cooperative, Anxious Patient's Medical & Behavioral Condition: Awake, Confused Need to Continue or Terminate Restraint or Seclusion: Continue
[2016-12-16] MEDS ORDERED: CARBIDOPA-LEVODOPA 10-100 MG 1 EACH TAB PO SCH (22:00)
[2016-12-16 22:30] LABS: Glucose,Whole Blood 130 mg/dL (75-99)
[2016-12-16 23:40] LABS: Appearance,Urine Clear (Clear); Bilirubin,Urine Negative (Negative); Glucose,Urine (UA) Negative (Negative); Ketones,Urine 1+ (Negative); Leukocyte Esterase,Urine Negative (Negative); Nitrite,Urine Negative (Negative); PH, Urine 7.5 (5.0-8.0); Protein,Urine Trace (Negative); UA Billing (MACRO vs. MICRO) CHEM; Urobilinogen,Urine <2.0 mg/dL (<2.0)
[2016-12-17] MEDS: LORazepam 2 MG/ML SYRINGE IV PRN ×4 (01:22→21:59)
[2016-12-17] MEDS: SODIUM CHLORIDE 0.9% 1,000 ML IV SCH ×3 (03:38→21:32)
[2016-12-17] MEDS ORDERED: LORazepam 2 MG/ML SYRINGE IV STA (04:23)
[2016-12-17] MEDS ORDERED: QUEtiapine 25 MG TAB PO STA (04:37)
[2016-12-17 06:22] LABS: ALT 53 U/L (21-72); AST 34 U/L (17-59); Alkaline Phosphatase 90 U/L (38-126); Anion Gap 9 mmol/L; Blood Urea Nitrogen 26 mg/dL (9-20); Calcium 9.2 mg/dL (8.4-10.2); Carbon Dioxide 25 mmol/L (22-30); Chloride 107 mmol/L (98-107); Glucose 79 mg/dL (74-99); Magnesium 2.1 mg/dL (1.6-2.3); Non-African American GFR(MDRD) >60 (>60 ml/min/1.73 sqM); Potassium 3.7 mmol/L (3.5-5.1); Sodium 141 mmol/L (137-145); Total Bilirubin 0.5 mg/dL (0.2-1.3); Total Protein 5.4 g/dL (6.3-8.2)
[2016-12-17 06:24] LABS: Basophils % (A) 1 %; CH 33.3; Eosinophils # (A) 0.2 k/uL (0-0.7); Eosinophils % (A) 3 %; HCT 38.9 % (39.0-53.0); HDW 2.58; HGB 13.6 gm/dL (13.0-17.5); Luc # (Auto) 0.09; Luc % (Auto) 1; Lymphocytes # (A) 1.4 k/uL (1.0-4.8); Lymphocytes % (A) 20 %; MCH 33.4 pg (25.0-35.0); MCV 95.5 fL (80.0-100.0); Mean Platelet Volume 6.3; Monocytes # (A) 0.4 k/uL (0-1.0); Monocytes % (A) 6 %; Neutrophils # (A) 4.7 k/uL (1.3-7.7); Neutrophils % (A) 69 %; RBC 4.08 m/uL (4.30-5.90); RDW 12.2 % (11.5-15.5); WBC 6.8 k/uL (3.8-10.6); WBC (Perox) 7.01
[2016-12-17] MEDS: lamoTRIgine 100 MG TAB PO SCH ×2 (08:05→21:31)
[2016-12-17] MEDS: ASPIRIN 325 MG TAB PO SCH (08:06)
[2016-12-17] MEDS: ATORVASTATIN 80 MG TAB PO SCH (08:06)
[2016-12-17] MEDS: QUEtiapine 25 MG TAB PO SCH ×2 (08:06→21:52)
[2016-12-17] MEDS: FAMOTIDINE 20 MG TAB PO SCH ×2 (08:06→21:30)
[2016-12-17] MEDS: MULTIVITAMINS, THERA 1 EACH TAB PO SCH (10:52)
[2016-12-17 11:58] LABS: Glucose,Whole Blood 96 mg/dL (75-99)
[2016-12-17] MEDS: POTAS-SOD-PHOS 278-164-250 MG 1 EACH PACKET PO SCH ×3 (14:40→17:57)
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
--- NOTE | 2016-12-17 15:48 | P.PN ---
Subjective Principal diagnosis: Patient was seen and examined and follow-up of breakthrough seizure and Lewy body dementia As a 65-year-old male with a history of depression, dyslipidemia, and hypertension who has been in the psychiatric unit since 11/29/2016 for agitation and altered mentation. He had been diagnosed with probable Lewy body dementia. He had been started on Sinemet and Exelon patch per neurology. He also struggles with ataxia, and had one episode of sliding out of bed resulting in ecchymoses. He had developed excessive movement on his Sinemet and the dose had been decreased by psychiatry. Per verbal report from nursing he became dizzy and unresponsive but not clear report regarding seizure activity . This lasted less than 5 minutes. He had a significant postictal period of approximately 20 minutes. Patient seen and examined today in the medical floor, patient was not cooperating with the interview, he answered my questions regarding place otherwise he started mumbling with unrelated issues. This is pretty typical of Mr. Chaudhry that I have seen this behavior from before. and there is no reported seizure activities overnight patient continues to be periodically agitated and would fight the staff. He continues to be in restraints for safety of the patient's and the staff. Patient otherwise seems to be sleeping and did not show effort to be engaged in any conversation Objective - Vital Signs Vital signs: Vital Signs Temp 96.4 F L 12/17/16 04:00 Pulse 76 12/17/16 04:00 Resp 18 12/17/16 04:00 BP 115/67 12/17/16 04:00 Pulse Ox 95 12/17/16 04:00 Intake & Output 12/16/16 12/17/16 12/17/16 18:59 06:59 18:59 Intake Total 20 200 Balance 20 200 Weight 76.5 kg 78.5 kg Intake: Intake, IV Titration 20 Amount Sodium Chloride 0.9% 1, 20 000 ml @ 75 mls/hr IV . [id number] [facility] Rx#:[id number] Oral 200 Other: Voiding Method Urinal Constitutional: vital signs stable, Not in acute distress, patient sleeping easily arousable not cooperative Eyes: Patient resisting opening eyes for examination Lungs: Clear to auscultation bilaterally, very poor effort not cooperative Cardiovascular: Regular rate and rhythm, no murmurs, no gallops, no rubs, no peripheral edema Extremities: No tenderness to palpation of the calf muscles, patient continues to be in restraints Psych: Oriented to place, sleepy but easily arousable not cooperating with exam - Labs CBC & Chem 7: 12/17/16 05:34 12/17/16 05:34 Labs: Abnormal Lab Results - Last 24 Hours (Table) 12/16/16 12/16/16 12/16/16 Range/Units 19:33 19:33 22:19 RBC (4.30-5.90) m/uL Hct (39.0-53.0) % Neutrophils # 8.9 H (1.3-7.7) k/uL Lymphocytes # 0.5 L (1.0-4.8) k/uL BUN 24 H (9-20) mg/dL Glucose 108 H (74-99) mg/dL POC Glucose (mg/dL) 130 H (75-99) mg/dL Phosphorus 2.0 L (2.5-4.5) mg/dL Total Protein 5.9 L (6.3-8.2) g/dL Urine Protein (Negative) Urine Ketones (Negative) 12/16/16 12/17/16 12/17/16 Range/Units 23:15 05:34 05:34 RBC 4.08 L (4.30-5.90) m/uL Hct 38.9 L (39.0-53.0) % Neutrophils # (1.3-7.7) k/uL Lymphocytes # (1.0-4.8) k/uL BUN 26 H (9-20) mg/dL Glucose (74-99) mg/dL POC Glucose (mg/dL) (75-99) mg/dL Phosphorus (2.5-4.5) mg/dL Total Protein 5.4 L (6.3-8.2) g/dL Urine Protein Trace H (Negative) Urine Ketones 1+ H (Negative) Assessment and Plan (1) Breakthrough seizure Status: Acute (2) Lewy body dementia with behavioral disturbance Status: Acute (3) Hypophosphatemia Status: Acute (4) Altered mental state Status: Acute (5) Rapidly progressive dementia Status: Acute (6) Hypertension Status: Acute Plan: Patient was continued on seizure precautions and antiepileptic drugs Continue with Seroquel per psychiatry recommendations Continue with Exelon We'll try to wean off Sinemet Replace phosphorus with Neutra-Phos 3 times a day Blood pressure is well-controlled without hypotension Heparin subcu 3 times a day for due to prophylaxis Continue with restraints for patient and staff safety await neurologic evaluation, CAT scan and EEG when patient cooperates
[2016-12-17] MEDS: HEPARIN SODIUM,PORCINE 5,000 UNIT/ML 1 ML VIAL SQ SCH (17:57)
[2016-12-17] MEDS: RIVASTIGMINE 4.6MG/24HR PATCH TRANSDERM SCH (21:30)
[2016-12-17] MEDS: MELATONIN 5 MG TABLET PO SCH (21:31)
[2016-12-18] MEDS: HEPARIN SODIUM,PORCINE 5,000 UNIT/ML 1 ML VIAL SQ SCH ×4 (00:09→23:16)
[2016-12-18] MEDS: LORazepam 2 MG/ML SYRINGE IV PRN ×3 (05:28→15:53)
[2016-12-18 06:19] LABS: Basophils % (A) 1 %; CH 33.1; CHCM 35.2; Eosinophils # (A) 0.2 k/uL (0-0.7); Eosinophils % (A) 4 %; HDW 2.67; HGB 14.1 gm/dL (13.0-17.5); Luc # (Auto) 0.09; Luc % (Auto) 2; Lymphocytes # (A) 1.1 k/uL (1.0-4.8); Lymphocytes % (A) 17 %; MCH 33.4 pg (25.0-35.0); MCHC 35.3 g/dL (31.0-37.0); MCV 94.5 fL (80.0-100.0); Mean Platelet Volume 6.2; Monocytes # (A) 0.4 k/uL (0-1.0); Monocytes % (A) 6 %; Neutrophils # (A) 4.5 k/uL (1.3-7.7); Neutrophils % (A) 71 %; RBC 4.23 m/uL (4.30-5.90); WBC 6.3 k/uL (3.8-10.6); WBC (Perox) 6.75
[2016-12-18 06:26] LABS: ALT 48 U/L (21-72); AST 30 U/L (17-59); Alkaline Phosphatase 91 U/L (38-126); Anion Gap 7 mmol/L; Blood Urea Nitrogen 26 mg/dL (9-20); Calcium 9.2 mg/dL (8.4-10.2); Carbon Dioxide 30 mmol/L (22-30); Chloride 106 mmol/L (98-107); Glucose 86 mg/dL (74-99); Non-African American GFR(MDRD) >60 (>60 ml/min/1.73 sqM); Phosphorous 3.4 mg/dL (2.5-4.5); Potassium 4.2 mmol/L (3.5-5.1); Sodium 143 mmol/L (137-145); Total Bilirubin 0.8 mg/dL (0.2-1.3); Total Protein 5.6 g/dL (6.3-8.2)
[2016-12-18] MEDS: POTAS-SOD-PHOS 278-164-250 MG 1 EACH PACKET PO SCH ×3 (07:03→17:00)
[2016-12-18] MEDS: ASPIRIN 325 MG TAB PO SCH (09:08)
[2016-12-18] MEDS: FAMOTIDINE 20 MG TAB PO SCH ×2 (09:09→20:17)
[2016-12-18] MEDS: QUEtiapine 25 MG TAB PO SCH ×2 (09:09→21:15)
[2016-12-18] MEDS: lamoTRIgine 100 MG TAB PO SCH ×2 (09:11→20:17)
[2016-12-18] MEDS: ATORVASTATIN 80 MG TAB PO SCH (09:12)
[2016-12-18] MEDS: SODIUM CHLORIDE 0.9% 1,000 ML IV SCH (10:54)
[2016-12-18] MEDS: MULTIVITAMINS, THERA 1 EACH TAB PO SCH (12:36)
--- NOTE | 2016-12-18 14:35 | P.PN ---
Progress Note - Text Interval History: Patient is a 65-year-old male who is being seen in follow-up to a consultation. Patient remains in soft restraints, patient was more alert today was sitting up in bed. Patient was coherent but not relevant and was responding to visual hallucinations, he did not recognize me today. Patient has a security person as a sitter reported that the patient did eat lunch but was fed. Patient when speaking today did not have any of the grunting or other vocalizations he was having on the psychiatric unit and his movements against the restraints did not appear to be the involuntary jerking movements he was having here on the psychiatric unit. Patient was not irritable and was somewhat redirectable. Mental Status: Patient is alert, oriented to person but he could not tell me where we were. Patient's responses were irrelevant but coherent, he was commenting on having to leave because he had a spider might, he was looking out the room doorway and repeating numbers 3.124, 226. Patient was in restraints and was not showing any evidence of involuntary jerking movements but was pulling somewhat against the restraints. Patient was redirectable to sit back in the bed and not pulling against the restraints. Patient did eat today but was fed. Patient's speech was of normal volume and rhythm and there is no evidence of the grunting or other vocalizations that he had prior. Assessment: Patient is more alert today but remains in soft restraints. Patient is oriented to self only and continues to have visual hallucinations. Patient continues to need to be fed. Patient is not having any of the involuntary jerking movements or vocalizations that he was having when on the psychiatric unit. Plan: Patient is no longer on Sinemet and appears to no longer have any dyskinesias. Would suggest increasing the Seroquel to 25 mg every 8 hours as the patient responded well to this on the psychiatric unit and I would give them 8 hours apart. Patient remains on Exelon. Patient received a dose of Ativan 0.5 IV earlier this afternoon. I spoke with the director of social services earlier this morning regarding discharge plans for this patient, patient will need long- term care due to his diagnosis and the suggestion was made to transfer to a geriatric psychiatric unit for further stabilization and I would recommend this.
--- NOTE | 2016-12-18 18:15 | P.PN ---
Subjective Principal diagnosis: Patient was seen and examined and follow-up of breakthrough seizure, combative behaviors and Lewy body dementia As a 65-year-old male with a history of depression, dyslipidemia, and hypertension who has been in the psychiatric unit since 11/29/2016 for agitation and altered mentation. He had been diagnosed with probable Lewy body dementia. He had been started on Sinemet and Exelon patch per neurology. He also struggles with ataxia, and had one episode of sliding out of bed resulting in ecchymoses. He had developed excessive movement on his Sinemet and the dose had been decreased by psychiatry. Per verbal report from nursing he became dizzy and unresponsive but not clear report regarding seizure activity . This lasted less than 5 minutes. He had a significant postictal period of approximately 20 minutes. Patient seen and examined today in the medical floor, patient seems to be calmer today, and cooperating with physical exam, however, he needs frequent redirection otherwise he goes tangential with his speech and thought process. bed site sitter denies any reported seizures, however, he pulls against his restraints at times, but without any involuntary jerking movements. he requires assistance with feeding. otherwise patient is denying any other complaints, and he seems to be apathic regarding his restraints. Objective - Vital Signs Vital signs: Vital Signs Temp 97.1 F L 12/18/16 13:43 Pulse 80 12/18/16 13:43 Resp 16 12/18/16 13:43 BP 120/73 12/18/16 13:43 Pulse Ox 95 12/18/16 13:43 Intake & Output 12/17/16 12/18/16 12/18/16 18:59 06:59 18:59 Intake Total 200 610 246 Balance 200 610 246 Weight 79 kg Intake: IV 10 10 0.9 10 10 Intake, IV Titration 0 600 Amount Sodium Chloride 0.9% 1, 0 600 000 ml @ 75 mls/hr IV . [id number] [facility] Rx#:[id number] Oral 200 236 Other: Voiding Method Urinal Urinal # Bowel Movements 0 - Exam Constitutional: vital signs stable, Not in acute distress, pleasant, conversant, continues to be in soft restraints Lungs: Clear to auscultation bilaterally, clear to percussion, normal respiratory effort Cardiovascular: Regular rate and rhythm, no murmurs, no gallops, no rubs, no peripheral edema Gastrointestinal: Soft, no tenderness to palpation, no palpable hepatosplenomegally, bowel sounds positive, no abdominal wall hernias Extremities: No digital cyanosis or clubbing, peripheral pulses palpable and equal over bilateral radial arteries and dorsalis pedis artery, no calf muscle tenderness Psych: Alert, oriented to place, and person labs reviewed - Labs CBC & Chem 7: 12/18/16 06:02 12/18/16 06:02 Labs: Abnormal Lab Results - Last 24 Hours (Table) 12/18/16 12/18/16 Range/Units 06:02 06:02 RBC 4.23 L (4.30-5.90) m/uL BUN 26 H (9-20) mg/dL Total Protein 5.6 L (6.3-8.2) g/dL Microbiology - Last 24 Hours (Table) 12/16/16 23:15 Urine Culture - Final Urine,Voided Assessment and Plan (1) Breakthrough seizure Status: Acute (2) Lewy body dementia with behavioral disturbance Status: Acute (3) Hypophosphatemia Status: Acute (4) Altered mental state Status: Acute (5) Rapidly progressive dementia Status: Acute (6) Hypertension Status: Acute Plan: Patient was continued on seizure precautions and antiepileptic drugs lamictal Continue with Seroquel per psychiatry recommendations Continue with Exelon Sinemet discontinued phosphorus is wnl Blood pressure is well-controlled without hypotension Heparin subcu 3 times a day for due to prophylaxis Continue with soft restraints for patient and staff safety CT and EEG could not be perfomred as patient is not cooperating psychiatry recommending terminal block assembler care facility, suggesting geriatric psychiatry placement due to severity of symptoms and poor prognosis discussed with social media director to initiate placement process patient seems to be medically stable, but continues to be combative with unpredictable behaviors.
--- NOTE | 2016-12-18 18:23 | P.MHFACE ---
Face to Face Eval of Restraint - Evaluation Patient's Immediate Situation: Endangers self safety, Endangers staff safety, Violent behavior Patient's Reaction to the Intervention: Appropriate, Calm Patient's Reaction to the Intervention - Comment: patient behaviors are unpredictable, when attempted to take off restraints, he immediately attempted to grab one of the nurses and had to be put back in soft restraints Patient's Medical & Behavioral Condition: Awake, Alert, Follows directions, Visual hallucinations, Flight of ideas Patient's Medical & Behavioral Condition - Comment: anxious and agitated at times Need to Continue or Terminate Restraint or Seclusion: Continue Need to Continue or Terminate Restraint/Seclusion - Comment: continue soft restraints, evaluation made 12/18/2016 at 1818
[2016-12-18] MEDS: RIVASTIGMINE 4.6MG/24HR PATCH TRANSDERM SCH (20:17)
[2016-12-18] MEDS: MELATONIN 5 MG TABLET PO SCH (20:17)
--- NOTE | 2016-12-18 21:08 | P.PN ---
Subjective Principal diagnosis: breakthrough seizure Patient is a 65-year-old male with a history of depression, dyslipidemia hypertension who was originally in a psychiatric unit since November 29, 2016 for agitation and altered mental status. Patient does have a diagnosis of probable Lewy body dementia. Patient was previously started on Sinemet and Exelon patch. Patient developed constipation, ataxia. P thenatient was observed to develop excessive movement of the upper and lower extremities on his Sinemet. Dose was previously decreased and then discontinued by psychiatry. Nursing staff and sitter conveyed today that the patient did not have any seizure-like activity. Patient was observed to be seated in bed with bilateral upper extremity soft restraints in place. Patient was alert to name only. Nursing reported that the patient was unable to obtain imaging of the brain as well as EEG due to agitation. Patient is uncooperative at this time and unable to complete any further testing or physical examination. Objective - Vital Signs Vital signs: Vital Signs Temp 97.1 F L 12/18/16 13:43 Pulse 80 12/18/16 13:43 Resp 16 12/18/16 13:43 BP 120/73 12/18/16 13:43 Pulse Ox 95 12/18/16 13:43 Intake & Output 12/18/16 12/18/16 12/19/16 06:59 18:59 06:59 Intake Total 610 246 Balance 610 246 Weight 79 kg Intake: IV 10 10 0.9 10 10 Intake, IV Titration 600 Amount Sodium Chloride 0.9% 1, 600 000 ml @ 75 mls/hr IV . [id number] [facility] Rx#:[id number] Oral 236 Other: Voiding Method Urinal Urinal # Bowel Movements 0 - Exam physical exam unable to be completed due to patient agitation and intermittent aggression. - Labs CBC & Chem 7: 12/18/16 06:02 12/18/16 06:02 Labs: Abnormal Lab Results - Last 24 Hours (Table) 12/18/16 12/18/16 Range/Units 06:02 06:02 RBC 4.23 L (4.30-5.90) m/uL BUN 26 H (9-20) mg/dL Total Protein 5.6 L (6.3-8.2) g/dL Microbiology - Last 24 Hours (Table) 12/16/16 23:15 Urine Culture - Final Urine,Voided Assessment and Plan (1) Breakthrough seizure Status: Acute (2) Lewy body dementia with behavioral disturbance Status: Acute (3) Altered mental state Status: Acute Plan: It does appear the patient could have had a breakthrough seizure. However, current characteristics are more consistent with dyskinesia related to medication and possible hallucinations. Continue with Lamictal at existing dose and frequency, Lamictal 200 mg twice a day. Lamictal level is currently pending. Continue with seizure precautions. Unable to complete EEG and CT of the brain due to patient being uncooperative. Patient's status does appear to be stable at this time with no new or reported seizure-like activity in greater than 48 hours. Neurology will clear the patient for discharge from a neurological standpoint once the results of the patient's Lamictal level has been received. If patient is therapeutic, patient can be cleared for placement long-term care facility. Discharge documentation to long-term care facility should reflect follow up with our office within 10-14 days for continued workup outpatient. If you should have any further questions, please feel free to contact our office. I discussed the patient's pertinent medical information with Dr. Perez. He agrees with the plan of care as implemented.
[2016-12-19] MEDS: SODIUM CHLORIDE 0.9% 1,000 ML IV SCH ×2 (07:42→10:50)
[2016-12-19] MEDS: LORazepam 2 MG/ML SYRINGE IV PRN (09:16)
[2016-12-19] MEDS: HEPARIN SODIUM,PORCINE 5,000 UNIT/ML 1 ML VIAL SQ SCH ×2 (09:33→16:23)
[2016-12-19] MEDS: ATORVASTATIN 80 MG TAB PO SCH ×2 (09:40→10:48)
[2016-12-19] MEDS: QUEtiapine 25 MG TAB PO SCH (09:40)
[2016-12-19] MEDS: FAMOTIDINE 20 MG TAB PO SCH ×3 (09:40→20:49)
[2016-12-19] MEDS: lamoTRIgine 100 MG TAB PO SCH ×3 (09:40→20:49)
[2016-12-19] MEDS: ASPIRIN 325 MG TAB PO SCH ×2 (09:40→10:49)
[2016-12-19] MEDS ORDERED: QUEtiapine 25 MG TAB PO STA (10:14)
[2016-12-19] MEDS: MULTIVITAMINS, THERA 1 EACH TAB PO SCH (10:48)
--- NOTE | 2016-12-19 13:55 | P.PN ---
Subjective Principal diagnosis: Patient was seen and examined and follow-up of breakthrough seizure, combative behaviors and Lewy body dementia 65-year-old male with a history of depression, dyslipidemia, and hypertension who has been in the psychiatric unit since 11/29/2016 for agitation and altered mentation. He had been diagnosed with probable Lewy body dementia. He had been started on Sinemet and Exelon patch per neurology. He also struggles with ataxia, and had one episode of sliding out of bed resulting in ecchymoses. He had developed excessive movement on his Sinemet and the dose had been decreased by psychiatry. Per verbal report from nursing he became dizzy and unresponsive but not clear report regarding seizure activity . This lasted less than 5 minutes. He had a significant postictal period of approximately 20 minutes. Patient seen and examined today in the medical floor, patient is extremly combative and abusive to the whole team and staff, he is biting, spiting, kicking and punching, it took 5 people to keep him safe and apply his restraints that he broke. one dose of ativan delivered to help calm the patient. He was otherwise very agitated and combative and not able to have a meaningful interview. I discussed the patient condition with Psych and casework specialist, planning on the appropriate course for this patient. Objective - Vital Signs Vital signs: Vital Signs Temp 98.6 F 12/19/16 07:00 Pulse 87 12/19/16 07:00 Resp 16 12/19/16 07:00 BP 145/58 12/19/16 07:00 Pulse Ox 97 12/19/16 07:00 Intake & Output 12/18/16 12/19/16 12/19/16 18:59 06:59 18:59 Intake Total 246 100 Balance 246 100 Intake: IV 10 0.9 10 Oral 236 100 Other: Voiding Method Urinal Urinal # Voids 3 # Bowel Movements 0 - Exam Constitutional: vital signs stable, continues to be in soft restraints , combative and abusive to the staff could not perform any further exam I was assisting the staff in applying his restraints - Labs CBC & Chem 7: 12/18/16 06:02 12/18/16 06:02 Labs: Microbiology - Last 24 Hours (Table) 12/16/16 23:15 Urine Culture - Final Urine,Voided Assessment and Plan (1) Breakthrough seizure Status: Acute (2) Lewy body dementia with behavioral disturbance Status: Acute (3) Hypophosphatemia Status: Acute (4) Altered mental state Status: Acute (5) Rapidly progressive dementia Status: Acute (6) Hypertension Status: Acute Plan: Patient was continued on seizure precautions and antiepileptic drugs lamictal increase dose of seroquel to 50 mg TID Continue with Exelon Sinemet discontinued Heparin subcu 3 times a day for due to prophylaxis Continue with soft restraints for patient and staff safety due to aggressive combative behavior CT and EEG could not be perfomred as patient is not cooperating , lamictal level is therapeutic, neurology Ok with discharging the patient psychiatry recommending snf care facility, suggesting geriatric psychiatry placement due to severity of symptoms and poor prognosis , social worker psychiatric is working on placement patient seems to be medically stable, but continues to be combative with unpredictable behaviors. patient will need to be transferred back to psych rossi Interval follow up discussed with social worker psychiatric Ryan, none of the geriatric psych places contacted (5 of them) has accepted this patient. discussed this update with dr. Sarabia, I discussed with her that there is no medical reason for the patient to stay on the medical floor, as neurology has cleared the patient, Dr. Sarabia is working with the mental health coordinator on finding placement possibly back at the psych unit. One other possibility that i discussed with Dr. Sarabia who is in agreement , is to consider hospice approach for this patient for control of aggressive behavior , he has a terminal diagnosis of rapidly progressive dementia due most likely lewy body dementia, however we will exhaust all our options including up titrating his seroquel to achieve symptoms control before we discuss with his Hospice referral. continue with soft restraints for patient and staff safety due to aggressive and combative behaviors
[2016-12-19] MEDS: QUEtiapine 50 MG TAB PO SCH ×2 (14:40→22:16)
--- NOTE | 2016-12-19 18:31 | P.MHFACE ---
Face to Face Eval of Restraint - Evaluation Patient's Immediate Situation: Endangers self safety, Endangers staff safety Patient's Reaction to the Intervention: Uncooperative, Angry, Hostile, Combative , Resistive to care Patient's Medical & Behavioral Condition: Awake, Alert, Agitated Patient's Medical & Behavioral Condition - Comment: rapidly progressive dementia due to most likely lewy body dementia Need to Continue or Terminate Restraint or Seclusion: Continue
[2016-12-19] MEDS: RIVASTIGMINE 4.6MG/24HR PATCH TRANSDERM SCH (19:23)
[2016-12-19] MEDS: MELATONIN 5 MG TABLET PO SCH (20:49)
[2016-12-20] MEDS: HEPARIN SODIUM,PORCINE 5,000 UNIT/ML 1 ML VIAL SQ SCH ×4 (00:58→23:27)
[2016-12-20] MEDS: QUEtiapine 50 MG TAB PO SCH ×3 (06:11→21:00)
[2016-12-20] MEDS: SODIUM CHLORIDE 0.9% 1,000 ML IV SCH ×2 (06:12→16:53)
[2016-12-20] MEDS: FAMOTIDINE 20 MG TAB PO SCH ×2 (08:12→20:23)
[2016-12-20] MEDS: ATORVASTATIN 80 MG TAB PO SCH (08:12)
[2016-12-20] MEDS: ASPIRIN 325 MG TAB PO SCH (08:12)
[2016-12-20] MEDS: lamoTRIgine 100 MG TAB PO SCH ×2 (08:13→20:23)
[2016-12-20] MEDS: MULTIVITAMINS, THERA 1 EACH TAB PO SCH (13:06)
[2016-12-20 13:14] VITALS: BMI 25.0
--- NOTE | 2016-12-20 15:05 | P.PN ---
Progress Note - Text Interval History: Patient is a 66-year-old male who was seen in follow-up after being transferred from the psychiatric unit to the medical floor after having a seizure. Patient was seen this morning and he was lying in bed, unrestrained per the nursing staff he had asked a shower and was able to do so without assistance, he asked for his glasses and was wearing them when he was seen. Patient was eating this morning it is unclear to me whether he required assistance or not. Patient was alert and oriented to person and location. He asked me why he was in the hospital, he stated that he was waiting for a traveling van but could not tell me why he was waiting for this and thought that someone else was in the room with us but when he looked around could see that the person he was referring to his not there. Patient was calm when interviewed and did not become irritated with questioning. Mental Status: Patient was alert and sitting in his bed unrestrained, he was cooperative during the interview and there is no evidence of any irritability or agitation. Patient was oriented to person and that he was in the hospital. He asked why he was in the hospital, when I discussed his memory difficulties prior to this he stated that yes he did have memory difficulties. Patient then spoke about a traveling van but was unable to elaborate further. When I asked him if he was seeing things in the room he stated no. Patient's speech is not spontaneous, at times his responses to questions are irrelevant but coherent, at times the patient has been observed talking to people that aren't in the room this did not occur while I was present today. His mood was calm, he did not become irritated during the interview. Assessment: Patient was much more cooperative today, did not appear that he was responding to visual hallucinations while I was interviewing him. Patient apparently requested a shower and his glasses this morning and was able to shower with minimal assistance. Patient is unrestrained per nursing staff did have one episode this morning a becoming irritated but was redirectable. Patient is oriented to person and situation. No jerking movements were noted on exam today. Plan: patient's Seroquel was increased yesterday to 50 mg every 8 hours and it seems to have decreased his agitation, he is more redirectable and he is not restrained. Patient continues to have episodes where he is more irritable and responding to visual hallucinations, his responses to questions can vary from 1 or 2 word answers to responses that are not relevant to the question. Patient is unable to elaborate on questions or elaborate on responses that he has given or understand information that is being given to him. Patient is able to respond to simple commands.
--- NOTE | 2016-12-20 18:01 | P.PN ---
Subjective Principal diagnosis: seizure, combative behaviors and Lewy body dementia 65-year-old male with a history of depression, dyslipidemia, and hypertension who has been in the psychiatric unit since 11/29/2016 for agitation and altered mentation. He had been diagnosed with probable Lewy body dementia. He had been started on Sinemet and Exelon patch per neurology. He also struggles with ataxia, and had one episode of sliding out of bed resulting in ecchymoses. He had developed excessive movement on his Sinemet and the dose had been decreased by psychiatry. Per verbal report from nursing he became dizzy and unresponsive but not clear report regarding seizure activity . This lasted less than 5 minutes. He had a significant postictal period of approximately 20 minutes. Patient was combative and abusive to the whole team and staff, he is biting, spiting, kicking and punching, it took 5 people to keep him safe and apply his restraints that he broke. one dose of ativan delivered to help calm the patient. He was otherwise very agitated and combative and not able to have a meaningful interview. Today at the time of my clinical evaluation of the patient he was very calm without any agitation he was not combative and rales present responsive appropriately without any verbal abusive language He stated that he was not sure why he behaved the way he did . Apparently admitted to alcoholism and had issues with his hand tremors He denied any chest pain or shortness of breath or cough or expectoration or fever or chills or any genitourinary complaints or active GI complaints He denied headache or focal limb weakness or numbness Denied diplopia Objective - Vital Signs Vital signs: Vital Signs Temp 97.1 F L 12/20/16 15:00 Pulse 73 12/20/16 15:00 Resp 16 12/20/16 17:27 BP 127/51 12/20/16 15:00 Pulse Ox 95 12/20/16 15:00 Intake & Output 12/19/16 12/20/16 12/20/16 18:59 06:59 18:59 Output Total 150 Balance -150 Weight 79 kg Output: Urine 150 Other: Voiding Method Diaper Urinal Toilet Diaper # Voids 1 1 1 - Exam Constitutional: No acute distress, conversant, pleasant Eyes: Anicteric sclerae, moist conjunctiva, no lid-lag PERRLA ENMT: NC/AT Oropharynx clear, no erythema, exudates Neck: Supple, FROM, no masses, or JVD No carotid bruits No thyromegaly Lungs:Clear to auscultion Clear to percussion Normal respiratory effort, no accessory muscle use Cardiovascular:Heart regular in rate and rhythm, No murmurs, gallops, or rubs No peripheral edema Abdominal: Soft Nontender, no guarding, rebound or rigidity Abdomen moving with respiration Normoactive bowel sounds No hepatomegaly, No splenomegaly No palpable mass No abdominal wall hernia noted Skin: Normal temperature, tone, texture, turgor No induration No subcutaneous nodules No rash, lesions No ulcers Extremities: No digital cyanosis No clubbing Pedal pulses intact and symmetrical Radial pulses intact and symmetrical No calf tenderness Neuro: Muscles Strength 5/5 in all 4 extremities Sensation to light touch grossly present throughout Cranial nerves II-XII grossly intact No focal sensory deficits Tremors present. Abnormal finger to nose test ? cerebellar dysfunction - Labs CBC & Chem 7: 12/18/16 06:02 12/18/16 06:02 Assessment and Plan (1) Breakthrough seizure Narrative/Plan: No recurrence now continue current therapy neurology for lab appreciated Status: Acute (2) Hypertension Narrative/Plan: Well-controlled today continue current management Status: Acute (3) Lewy body dementia with behavioral disturbance Narrative/Plan: Diagnoses given by neurologist Possible etiologies alcoholism Status: Acute (4) Alcohol use Narrative/Plan: History of alcoholism and possible neurologic complications of alcoholism within can follow up with the cerebellar dysfunction Status: Acute (5) Altered mental state Narrative/Plan: The patient today has improved greatly compared to the description from yesterday Status: Acute (6) Seizure disorder Narrative/Plan: Known seizure disorder with breakthrough seizures possible alcohol withdrawal Status: Chronic Plan: The patient is stable and medical floor social sciences department chair are unable to place him in any geriatric psych facility for inpatient psychiatry service. The patient taken back into the facility With his change in them and dramatic improvement today I think the patient can be discharged from before we need reevaluation by the psychiatrist his medications and might be able to discharge him home with nursing services at home We will observe him overnight physician tomorrow the patient again has dramatically improved with's insights awake and responsive without any behavior changes often strains Time with Patient: Greater than 30
[2016-12-20] MEDS: RIVASTIGMINE 4.6MG/24HR PATCH TRANSDERM SCH (19:07)
[2016-12-20] MEDS: MELATONIN 5 MG TABLET PO SCH (20:23)
[2016-12-21] MEDS: SODIUM CHLORIDE 0.9% 1,000 ML IV SCH ×2 (06:18→18:37)
[2016-12-21] MEDS: QUEtiapine 50 MG TAB PO SCH ×3 (06:29→22:28)
[2016-12-21] MEDS: lamoTRIgine 100 MG TAB PO SCH ×2 (08:30→22:28)
[2016-12-21] MEDS: ASPIRIN 325 MG TAB PO SCH (08:31)
[2016-12-21] MEDS: FAMOTIDINE 20 MG TAB PO SCH ×2 (08:31→22:28)
[2016-12-21] MEDS: ATORVASTATIN 80 MG TAB PO SCH (08:31)
[2016-12-21] MEDS: HEPARIN SODIUM,PORCINE 5,000 UNIT/ML 1 ML VIAL SQ SCH ×2 (08:31→18:21)
--- NOTE | 2016-12-21 13:30 | P.PN ---
Subjective Principal diagnosis: seizure, combative behaviors and Lewy body dementia 65-year-old male with a history of depression, dyslipidemia, and hypertension who has been in the psychiatric unit since 11/29/2016 for agitation and altered mentation. He had been diagnosed with probable Lewy body dementia. He had been started on Sinemet and Exelon patch per neurology. He also struggles with ataxia, and had one episode of sliding out of bed resulting in ecchymoses. He had developed excessive movement on his Sinemet and the dose had been decreased by psychiatry. Per verbal report from nursing he became dizzy and unresponsive but not clear report regarding seizure activity . This lasted less than 5 minutes. He had a significant postictal period of approximately 20 minutes. Patient was combative and abusive to the whole team and staff, he is biting, spiting, kicking and punching, it took 5 people to keep him safe and apply his restraints that he broke. one dose of ativan delivered to help calm the patient. He was otherwise very agitated and combative and not able to have a meaningful interview. Today at the time of my clinical evaluation of the patient he was very calm without any agitation he was not combative and rales present responsive appropriately without any verbal abusive language He stated that he was not sure why he behaved the way he did . Apparently admitted to alcoholism and had issues with his hand tremors He denied any chest pain or shortness of breath or cough or expectoration or fever or chills or any genitourinary complaints or active GI complaints He denied headache or focal limb weakness or numbness Denied diplopia Today is doing well and stable No combativ behaviour and wants to go home He had insight Objective - Vital Signs Vital signs: Vital Signs Temp 97.4 F L 12/21/16 07:00 Pulse 103 H 12/21/16 07:00 Resp 16 12/21/16 07:00 BP 129/75 12/21/16 07:00 Pulse Ox 98 12/21/16 07:00 Intake & Output 12/20/16 12/21/16 12/21/16 18:59 06:59 18:59 Weight 79 kg Other: Voiding Method Toilet Toilet # Voids 1 1 - Exam Constitutional: No acute distress, conversant, pleasant Eyes: Anicteric sclerae, moist conjunctiva, no lid-lag PERRLA ENMT: NC/AT Oropharynx clear, no erythema, exudates Neck: Supple, FROM, no masses, or JVD No carotid bruits No thyromegaly Lungs:Clear to auscultion Clear to percussion Normal respiratory effort, no accessory muscle use Cardiovascular:Heart regular in rate and rhythm, No murmurs, gallops, or rubs No peripheral edema Abdominal: Soft Nontender, no guarding, rebound or rigidity Abdomen moving with respiration Normoactive bowel sounds No hepatomegaly, No splenomegaly No palpable mass No abdominal wall hernia noted Skin: Normal temperature, tone, texture, turgor No induration No subcutaneous nodules No rash, lesions No ulcers Extremities: No digital cyanosis No clubbing Pedal pulses intact and symmetrical Radial pulses intact and symmetrical No calf tenderness Neuro: Muscles Strength 5/5 in all 4 extremities Sensation to light touch grossly present throughout Cranial nerves II-XII grossly intact No focal sensory deficits Tremors present. Abnormal finger to nose test ? cerebellar dysfunction - Labs CBC & Chem 7: 12/18/16 06:02 12/18/16 06:02 Assessment and Plan (1) Breakthrough seizure Narrative/Plan: No recurrence now continue current therapy neurology for lab appreciated Status: Acute (2) Hypertension Narrative/Plan: Well-controlled today continue current management Status: Acute (3) Lewy body dementia with behavioral disturbance Narrative/Plan: Diagnoses given by neurologist Possible etiologies alcoholism Status: Acute (4) Alcohol use Narrative/Plan: History of alcoholism and possible neurologic complications of alcoholism within can follow up with the cerebellar dysfunction Status: Acute (5) Altered mental state Narrative/Plan: The patient today has improved greatly compared to the description from day before yesterday Resolved Status: Resolved (6) Seizure disorder Narrative/Plan: Known seizure disorder with breakthrough seizures possible alcohol withdrawal Status: Chronic Plan: The patient is stable and medical floor director social welfare are unable to place him in any geriatric psych facility for inpatient psychiatry service. The patient taken back into the facility With his change in them and dramatic improvement today I think the patient can be discharged from before we need reevaluation by the psychiatrist his medications and might be able to discharge him home with nursing services at home Will reconsult psychiatrist Plan discharge today or tomorrow if ok or transfer back to psych facility will contact discharge palcain
[2016-12-21] MEDS: MULTIVITAMINS, THERA 1 EACH TAB PO SCH (14:07)
[2016-12-21] MEDS ORDERED: HALOPERIDOL LACTATE 5 MG/ML 1 ML VIAL IM STA (18:02)
[2016-12-21] MEDS ORDERED: LORazepam 1 MG TAB PO PRN (18:22)
[2016-12-21] MEDS ORDERED: LORazepam 2 MG/ML SYRINGE IM STA (18:22)
[2016-12-21] MEDS: MELATONIN 5 MG TABLET PO SCH (22:28)
[2016-12-22] MEDS: RIVASTIGMINE 4.6MG/24HR PATCH TRANSDERM SCH ×2 (06:16→20:06)
[2016-12-22] MEDS: HEPARIN SODIUM,PORCINE 5,000 UNIT/ML 1 ML VIAL SQ SCH ×4 (06:16→23:51)
[2016-12-22] MEDS: QUEtiapine 50 MG TAB PO SCH ×2 (06:17→15:13)
[2016-12-22 08:25] VITALS: RESP 16
[2016-12-22 09:17] LABS: CHCM 35.6; HDW 2.69; HGB 13.4 gm/dL (13.0-17.5); MCH 33.5 pg (25.0-35.0); MCHC 36.1 g/dL (31.0-37.0); MCV 92.9 fL (80.0-100.0); Mean Platelet Volume 6.5; RBC 3.99 m/uL (4.30-5.90); RDW 12.1 % (11.5-15.5); WBC 5.6 k/uL (3.8-10.6)
[2016-12-22 09:48] LABS: ALT 71 U/L (21-72); AST 58 U/L (17-59); Alkaline Phosphatase 120 U/L (38-126); Anion Gap 7 mmol/L; Blood Urea Nitrogen 21 mg/dL (9-20); Calcium 9.3 mg/dL (8.4-10.2); Carbon Dioxide 29 mmol/L (22-30); Chloride 103 mmol/L (98-107); Glucose 89 mg/dL (74-99); Non-African American GFR(MDRD) >60 (>60 ml/min/1.73 sqM); Potassium 4.1 mmol/L (3.5-5.1); Sodium 139 mmol/L (137-145); Total Bilirubin 0.8 mg/dL (0.2-1.3); Total Protein 5.6 g/dL (6.3-8.2)
[2016-12-22] MEDS: SODIUM CHLORIDE 0.9% 1,000 ML IV SCH ×2 (11:23→21:10)
[2016-12-22] MEDS: MULTIVITAMINS, THERA 1 EACH TAB PO SCH (12:09)
[2016-12-22] MEDS: FAMOTIDINE 20 MG TAB PO SCH ×2 (12:09→20:06)
[2016-12-22] MEDS: ATORVASTATIN 80 MG TAB PO SCH (12:09)
[2016-12-22] MEDS: lamoTRIgine 100 MG TAB PO SCH ×2 (12:09→20:06)
[2016-12-22] MEDS: ASPIRIN 325 MG TAB PO SCH (12:09)
--- NOTE | 2016-12-22 14:44 | P.PN ---
Subjective Principal diagnosis: seizure, combative behaviors and Lewy body dementia 65-year-old male with a history of depression, dyslipidemia, and hypertension who has been in the psychiatric unit since 11/29/2016 for agitation and altered mentation. He had been diagnosed with probable Lewy body dementia. He had been started on Sinemet and Exelon patch per neurology. He also struggles with ataxia, and had one episode of sliding out of bed resulting in ecchymoses. He had developed excessive movement on his Sinemet and the dose had been decreased by psychiatry. Per verbal report from nursing he became dizzy and unresponsive but not clear report regarding seizure activity . This lasted less than 5 minutes. He had a significant postictal period of approximately 20 minutes. Patient was combative and abusive to the whole team and staff, he is biting, spiting, kicking and punching, it took 5 people to keep him safe and apply his restraints that he broke. one dose of ativan delivered to help calm the patient. He was otherwise very agitated and combative and not able to have a meaningful interview. Today at the time of my clinical evaluation of the patient he was very calm without any agitation he was not combative and rales present responsive appropriately without any verbal abusive language He stated that he was not sure why he behaved the way he did . Apparently admitted to alcoholism and had issues with his hand tremors He denied any chest pain or shortness of breath or cough or expectoration or fever or chills or any genitourinary complaints or active GI complaints He denied headache or focal limb weakness or numbness Denied diplopia Today is doing well and stable He had a combativ behaviour yesterday and wanted to go home Today he had insight but lack of memmory. He did not remember that I saw him yesterday He responded to Haldol IM and Ativan Psychiatrist visit and re evaluation still pending Objective - Vital Signs Vital signs: Vital Signs Temp 97.6 F 12/22/16 07:00 Pulse 79 12/22/16 07:00 Resp 16 12/22/16 07:00 BP 127/69 12/22/16 07:00 Pulse Ox 95 12/22/16 07:00 Intake & Output 12/21/16 12/22/16 12/22/16 18:59 06:59 18:59 Weight 62 kg Other: Voiding Method Toilet Diaper # Voids 2 1 - Exam Constitutional: No acute distress, conversant, pleasant Eyes: Anicteric sclerae, moist conjunctiva, no lid-lag PERRLA ENMT: NC/AT Oropharynx clear, no erythema, exudates Neck: Supple, FROM, no masses, or JVD No carotid bruits No thyromegaly Lungs:Clear to auscultion Clear to percussion Normal respiratory effort, no accessory muscle use Cardiovascular:Heart regular in rate and rhythm, No murmurs, gallops, or rubs No peripheral edema Abdominal: Soft Nontender, no guarding, rebound or rigidity Abdomen moving with respiration Normoactive bowel sounds No hepatomegaly, No splenomegaly No palpable mass No abdominal wall hernia noted Skin: Normal temperature, tone, texture, turgor No induration No subcutaneous nodules No rash, lesions No ulcers Extremities: No digital cyanosis No clubbing Pedal pulses intact and symmetrical Radial pulses intact and symmetrical No calf tenderness Neuro: Muscles Strength 5/5 in all 4 extremities Sensation to light touch grossly present throughout Cranial nerves II-XII grossly intact No focal sensory deficits Tremors present. Abnormal finger to nose test ? cerebellar dysfunction - Labs CBC & Chem 7: 12/22/16 08:26 12/22/16 08:26 Labs: Abnormal Lab Results - Last 24 Hours (Table) 12/22/16 12/22/16 Range/Units 08:26 08:26 RBC 3.99 L (4.30-5.90) m/uL Hct 37.0 L (39.0-53.0) % BUN 21 H (9-20) mg/dL Total Protein 5.6 L (6.3-8.2) g/dL Assessment and Plan (1) Breakthrough seizure Narrative/Plan: No recurrence now continue current therapy neurology for lab appreciated Status: Acute (2) Hypertension Narrative/Plan: Well-controlled today continue current management Status: Acute (3) Lewy body dementia with behavioral disturbance Narrative/Plan: Diagnoses given by neurologist Possible etiologies alcoholism He had a combativ behaviour yesterday and wanted to go home Today he had insight but lack of memmory. He did not remember that I saw him yesterday He responded to Haldol IM and Ativan Psychiatrist visit and re evaluation still pending Status: Acute (4) Alcohol use Narrative/Plan: History of alcoholism and possible neurologic complications of alcoholism within can follow up with the cerebellar dysfunction Status: Acute (5) Altered mental state Narrative/Plan: The patient today has improved greatly compared to the description earlier Resolved Status: Resolved (6) Seizure disorder Narrative/Plan: Known seizure disorder with breakthrough seizures possible alcohol withdrawal Status: Chronic Plan: The patient is stable and medical floor clinical social work aide are unable to place him in any geriatric psych facility for inpatient psychiatry service. The patient taken back into the facility With his change in them and dramatic improvement . I think the patient can be discharged from before we need reevaluation by the psychiatrist his medications and might be able to discharge him home with nursing services at home He had a combativ behaviour yesterday and wanted to go home Today he had insight but lack of memmory. He did not remember that I saw him yesterday He responded to Haldol IM and Ativan Psychiatrist visit and re evaluation still pending Plan discharge today or tomorrow if ok or transfer back to psych facility will contact discharge joi
[2016-12-22] MEDS: OLANZapine 5 MG TAB PO SCH ×2 (18:11→21:10)
[2016-12-23 07:52] VITALS: BP 114/64; PULSE 72; TEMP 97.4
[2016-12-23] MEDS: OLANZapine 5 MG TAB PO SCH (09:26)
[2016-12-23] MEDS: lamoTRIgine 100 MG TAB PO SCH (09:26)
[2016-12-23] MEDS: ATORVASTATIN 80 MG TAB PO SCH (09:26)
[2016-12-23] MEDS: ASPIRIN 325 MG TAB PO SCH (09:26)
[2016-12-23] MEDS: FAMOTIDINE 20 MG TAB PO SCH (09:27)
[2016-12-23] MEDS: HEPARIN SODIUM,PORCINE 5,000 UNIT/ML 1 ML VIAL SQ SCH (09:27)
--- NOTE | 2016-12-23 11:40 | CONS ---
PSYCHIATRIC CONSULTATION DATE OF SERVICE: 12/22/2016 PURPOSE FOR CONSULTATION: Evaluate for mental status change. HISTORY OF PRESENTING ILLNESS: The patient has been doing fairly well overall. He has not had any further behavior issues since the point where he had the transferred to the medical floor following his seizure. Since being on the 4th floor he has been doing fairly well. He has been calm. He responds appropriately to staff. It is noted that his orientation and thought process fluctuates. There are times he is a little more confused and at other times, he is much better oriented. He has indicated some issues with visual hallucinations. He has had some falls. He has had orthostatic hypotension. These issues were noted on his petition for involuntary hospitalization. In general those issues have been fairly well stabilized. From a medical standpoint he has been stable and apparently is at a point that he would be able to be discharged. Nursing had contact with the patient's earlier today. The stated that if he was stable in terms of any of the behavior issues he would be appropriate for coming home. The patient was in agreement with that. When I saw the patient, he was calm. He was hoping to be discharged soon. He paid good attention to the conversation. It was noted that his orientation was spotty. He was uncertain about the day and date. He knew his general circumstances and knew he was in the hospital. He was not able to recall many of the events that transpired as far as his being on the psych unit and transferred to the medical floor and so forth. He did recall that he had been on the psych unit for over 2 weeks. He was unclear about the details of the events where he got into an agitated state. I switched the patient from Seroquel to Zyprexa mainly to reduce risk for EPS. The patient has not shown any problems with the medication change. He does not show in the abnormal movements, tremor or rigidity. ASSESSMENT AND PLAN: I would continue the current diagnosis and treatment plan. From a psychiatric standpoint, the patient appears to be stable. I would recommend that he continue on the medical floor for the rest of the day and if he remains stable tomorrow I would look at discharging the patient tomorrow to home based on the 's guidance in this matter. It is noted that his orientation does fluctuate. When I told him he likely would be discharged tomorrow he said he was fine with that and as I left the room he asked if he was being discharged today. Nursing has noted that there are times where his orientation is better and times where it seems to fail. One concern is that he has limited awareness to process new information. Thus he likely needs a fair amount of support in regards to any changes. It may well be the case that he got into agitation simply out of disorientation following his transfer from the psychiatric unit. I recommend that the patient continue on Zyprexa 5 mg 3 times a day. In follow up , if he does show some daytime sedation to Zyprexa the doses could be switched to all at bedtime and possibly over a month or 2 he could be tried on a lower dose. MMJESSICAL / IJN: [id number] / ABDIRAHMAN
--- NOTE | 2016-12-23 15:41 | P.DS ---
Providers Date of admission: 12/16/16 18:18 Expected date of discharge: 12/23/16 Attending physician: MD Kim John Consults: 12/16/16 18:32 Consult Physician Routine Consulting Provider: Theo Perez Consult Reason/Comments: break through seizure Do you want consulting provider notified?: Yes 12/17/16 08:08 Consult Physician Routine Consulting Provider: Margareth Sarabia Consult Reason/Comments: psychosis Do you want consulting provider notified?: Yes Primary care physician: Sandra Johnson MD Not Available - Discharge Diagnosis(es) (1) Breakthrough seizure He had one episode lasted < 5 minutes with 20 minutes of post ictal unresponsiveness No recurrence on therapy Status: Acute Priority: High (2) Hypertension BP was well controlled Orthostatic hypotention and medication related low BP Stabilized Status: Acute Priority: Medium (3) Lewy body dementia with behavioral disturbance As a 65-year-old male with a history of depression, dyslipidemia, and hypertension who has been in the psychiatric unit since 11/29/2016 for agitation and altered mentation. He had been diagnosed with probable Lewy body dementia. He had been started on Sinemet and Exelon patch per neurology. He also struggles with ataxia, and had one episode of sliding out of bed resulting in ecchymoses. He had developed excessive movement on his Sinemet and the dose had been decreased by psychiatry. The patient had abusive and combative behaviour , aggressive towards staff required soft restraints and ativan with Haldol therapy. Multiple failed trials to place him in psych. 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 Status: Chronic Priority: Medium (5) Altered mental state the patient had decreased level of conscioussness and seizures and transferred fro psych floor. He became fully consciouss and allert. Stable Status: Resolved Priority: High (6) Seizure disorder Chronic with a breakthrough attacks Stable Status: Chronic Priority: Medium Hospital Course: Had behavioural cmbattive aaaaaaaaand threatening behaviour Became unresponsive and changed mental status with a seizure All resolved Cleared by Psychiatrist Neurology consult obtained Pertinent Studies: Urine C/S was negative Lumbar Puncture was refused CBC & CMP : WNL Procedures: none Patient Condition at Discharge: Good Plan - Discharge Summary New Discharge Prescriptions: New OLANZapine [ZyPREXA] 5 mg PO TID #90 tab Continue lamoTRIgine 200 mg PO BID Aspirin 325 mg PO DAILY Multivitamins, Thera [Multivitamin (formulary)] 1 tab PO DAILY Lysine [l-Lysine] 500 mg PO DAILY Atorvastatin [Lipitor] 80 mg PO DAILY FLUoxetine HCL [PROzac] 40 mg PO BID Discharge Medication List Aspirin 325 mg PO DAILY 11/29/16 [History] Atorvastatin [Lipitor] 80 mg PO DAILY 11/29/16 [History] FLUoxetine HCL [PROzac] 40 mg PO BID 11/29/16 [History] Lysine [l-Lysine] 500 mg PO DAILY 11/29/16 [History] Multivitamins, Thera [Multivitamin (formulary)] 1 tab PO DAILY 11/29/16 [History ] lamoTRIgine 200 mg PO BID 11/29/16 [History] OLANZapine [ZyPREXA] 5 mg PO TID #90 tab 12/23/16 [Rx] Follow up Appointment(s)/Referral(s): Theo Perez MD [STAFF PHYSICIAN] - 1 Week (Please call for appointment, office closed.) Margareth Sarabia MD [Medical Doctor] - 1 Week (Please call for appointment, office closed.) Patient Instructions/Handouts: Dementia (GEN), Nonepileptic Seizures (DC) Activity/Diet/Wound Care/Special Instructions: Cardiac diet. Fall precautions. Care Plan Goals (MU): Alcohol abstenece F/U PCP /Neurologist/Psychiatrist Discharge Disposition: HOME SELF-CARE
--- NOTE | 2016-12-25 08:02 | EEG ---
ELECTROENCEPHALOGRAM REPORT DATE OF SERVICE: 12/20/2016. REASON FOR TESTING: Seizure. CURRENT ANTIEPILEPTIC MEDICATIONS: Lamictal. DESCRIPTION OF THE PROCEDURE: This EEG was performed using a 21 channel digital electroencephalograph, following international 10-20 system. DESCRIPTION OF THE RECORDING: From the beginning of the tracing, and with patient's eyes closed, the background rhythm was mostly consisting of 7 Hz theta frequency in the posterior occipital leads. No obvious asymmetry is seen. Photic stimulation was performed with a minimal driving response seen. No pathological waves were elicited. Frequent movement artifacts are seen. Hyperventilation was not performed. Recurrent muscle artifacts are seen. The patient remains awake throughout the tracing. No epileptiform discharges were seen. His EKG lead showed a regular rate and rhythm. INTERPRETATION: This awake EEG can be considered within normal limits. There was no asymmetry seen. No epileptiform discharges were noticed. The absence of epileptiform discharges does not rule out the diagnosis of epilepsy, therefore clinical correlation is recommended. MMJESSICAL / IJN: [id number] /
== END 2016-12-23 14:05 | disposition home or self-care (01) ==
LOC: EEVIPCON 18:18 → 6SEL 18:18 → INTOOBSV 18:18 → 6SEL 18:38 → 4MS4W 12-18 13:32
PROVIDERS: ADMIT Internal Medicine; ATTEND Internal Medicine
DX: G40.909 Epilepsy, unspecified, not intractable, without status epilepticus (principal); I10 Essential (primary) hypertension; F02.81 Dementia in other diseases classified elsewhere, unspecified severity, with behavioral disturbance; G31.83 Neurocognitive disorder with Lewy bodies; E86.0 Dehydration; E78.5 Hyperlipidemia, unspecified; F32.9 Major depressive disorder, single episode, unspecified; R41.82 Altered mental status, unspecified; R27.0 Ataxia, unspecified; S70.11XA Contusion of right thigh, initial encounter; X58.XXXA Exposure to other specified factors, initial encounter; Z78.1 Physical restraint status; E83.39 Other disorders of phosphorus metabolism; K59.00 Constipation, unspecified; F10.21 Alcohol dependence, in remission; I95.1 Orthostatic hypotension; Z91.81 History of falling
CPT/HCPCS: 96376 ×3; 96372 ×5; 96374; 95819; 80053 ×4; 80175; 83735 ×2; 84100 ×2; 85025 ×3; 85027; 81003; 87086; G0378 ×8; G0379; J2060 ×5; J1630; J1644 ×5